=== PATIENT | male | born 1980 | race Caucasian/White ===

== ENCOUNTER → 2022-04-16 | Outpatient (REF) | payer OTHER ==
[2022-04-16 16:59] LABS: ALBUMIN 4.1 G/DL (3.2-5.2); ALKALINE PHOSPHATASE 81 U/L (46-116); ALT/SGPT 75 U/L (7.0-40); AST/SGOT 45 U/L (<34); BILIRUBIN,TOTAL 0.6 MG/DL (0.3-1.2); BLOOD UREA NITROGEN 13 MG/DL (9-23); CALCIUM LEVEL 9.3 MG/DL (8.5-10.1); CARBON DIOXIDE LEVEL 27 MMOL/L (20-31); CHLORIDE LEVEL 102 MMOL/L (98-107); CREATININE FOR GFR 1.01 MG/DL (0.70-1.30); GLOMERULAR FILTRATION RATE > 60.0 (>60); GLUCOSE, FASTING 106 MG/DL (60-100); POTASSIUM SERUM 4.7 MMOL/L (3.5-5.1); SODIUM LEVEL 139 MMOL/L (136-145); TOTAL PROTEIN 7.2 G/DL (5.7-8.2)
== END ==
LOC: M SFHCADAM 14:13
PROVIDERS: ATTEND Nurse Practitioner Family
DX: B35.0 Tinea barbae and tinea capitis (principal)

== ENCOUNTER 2023-02-12 23:32 | Inpatient (IN) | payer OTHER ==
[~2023-02-12] VITALS: Ht 175.3 cm; Wt 117.0 kg
[2023-02-12] MEDS ORDERED: METH-1165 PO (23:43)
[2023-02-12] MEDS ORDERED: PRIL20TA2 PO (23:43)
[2023-02-12] MEDS ORDERED: RAMI1CAP26 PO ×2 (23:43)
[2023-02-12] MEDS ORDERED: AMBI10TA PO (23:43)
[2023-02-12] MEDS ORDERED: ROSU40TA4 PO (23:43)
[2023-02-12] MEDS ORDERED: METO100T5 PO (23:43)
[2023-02-12] MEDS ORDERED: FLEC50HA PO (23:43)
[2023-02-12] MEDS ORDERED: ALLO100T PO (23:43)
[2023-02-12] MEDS ORDERED: CETI10TA4 PO (23:43)
[2023-02-12] MEDS ORDERED: BUSP10TA PO (23:43)
[2023-02-13] VITALS (16 sets, daily range): BP systolic 103–139; BP diastolic 61–96; TEMP 97.2–101.4; O2SAT 90–97
[2023-02-13] MEDS ORDERED: KETOROLAC 30 MG/ML 1ML VIAL IV ONE (00:35)
[2023-02-13 00:48] LABS: BASO # 0.1 10^3/uL (0.0-0.2); BASO % 0.2 % (0.0-1.0); HEMATOCRIT 47.3 % (42.0-52.0); HEMOGLOBIN 16.3 g/dl (13.5-17.5); LYMPH # 0.6 10^3/uL (1.5-5.0); LYMPH % 3.1 % (24.0-44.0); MEAN CORPUSCULAR HEMOGLOBIN 29.2 pg (27.0-33.0); MEAN CORPUSCULAR HGB CONC 34.5 g/dl (32.0-36.5); MEAN CORPUSCULAR VOLUME 84.8 fl (80.0-96.0); MONO # 1.1 10^3/uL (0.0-0.8); MONO % 5.6 % (2.0-8.0); NEUTROPHILS # 18.3 10^3/uL (1.5-8.5); NEUTROPHILS % 90.6 % (36.0-66.0); PLATELET COUNT, AUTOMATED 159 10^3/uL (150-450); RED BLOOD COUNT 5.58 10^6/uL (4.30-6.10); WHITE BLOOD COUNT 20.2 10^3/uL (4.0-10.0)
[2023-02-13 01:12] LABS: BLOOD UREA NITROGEN 13 MG/DL (9-23); CALCIUM LEVEL 9.3 MG/DL (8.5-10.1); CARBON DIOXIDE LEVEL 26 MMOL/L (20-31); CHLORIDE LEVEL 105 MMOL/L (98-107); GLOMERULAR FILTRATION RATE > 60.0 (>60); GLUCOSE, FASTING 157 MG/DL (60-100); SODIUM LEVEL 140 MMOL/L (136-145)
[2023-02-13] MEDS ORDERED: NS 1,000 ML IV SCH ×2 (01:15→08:00)
[2023-02-13] MEDS ORDERED: PIPERACILLIN/TAZOBACTAM SOD 4.5 GM in D5W MINI-BAG PLUS 50 ML IV ONE (01:15)
[2023-02-13] MEDS ORDERED: ISOVUE-370 76% 100ML VIAL As Ordered ONE (01:22)
[2023-02-13] MEDS ORDERED: ACETAMINOPHEN TAB 650MG DOSE (2X325MG) PO ONE (01:25)
[2023-02-13] MEDS ORDERED: ALTA1CAP3 PO (01:54)
[2023-02-13] MEDS ORDERED: FLEC50HA PO (01:54)
[2023-02-13] MEDS ORDERED: ALTA1CAP4 PO (01:54)
[2023-02-13] MEDS ORDERED: METH-1165 PO (01:54)
[2023-02-13] MEDS ORDERED: ASPI-161 PO (01:54)
[2023-02-13] MEDS ORDERED: MELA1TAB9 PO (01:54)
[2023-02-13] MEDS ORDERED: ALLO100T PO (01:54)
[2023-02-13] MEDS ORDERED: ERGO500029 PO (01:54)
[2023-02-13] MEDS ORDERED: OMEP40CA5 PO (01:54)
[2023-02-13] MEDS ORDERED: AMBI12.52 PO (01:54)
[2023-02-13] MEDS ORDERED: ROSU40TA4 PO (01:54)
[2023-02-13] MEDS ORDERED: KETO2SHA8 TOP (01:54)
[2023-02-13] MEDS ORDERED: CETI-25 PO (01:54)
[2023-02-13] MEDS ORDERED: BUSP10TA PO (01:54)
[2023-02-13] MEDS ORDERED: METO100T5 PO (01:54)
[2023-02-13] MEDS ORDERED: CLIN1GEL22 TOP (01:54)
[2023-02-13] MEDS ORDERED: HOME MED LIST COMPLETE! XX SCH (01:55)
[2023-02-13] MEDS ORDERED: GLUCAGON INJ 1MG VIAL As Ordered ONE (04:17)
[2023-02-13] MEDS ORDERED: ROCURONIUM BROMIDE 50MG/5ML VIAL As Ordered ONE ×2 (04:36→05:36)
[2023-02-13] MEDS ORDERED: LIDOCAINE 2% 100MG/5ML SDV (FOR ANES.) As Ordered ONE (04:37)
[2023-02-13] MEDS ORDERED: propofoL 200 MG/20 ML VIAL As Ordered ONE (04:39)
[2023-02-13] MEDS ORDERED: dexmedeTOMIDine (4MCG/ML)200MCG/50ML BTL (PRECEDEX) As Ordered ONE (05:22)
[2023-02-13] MEDS ORDERED: SUGAMMADEX SODIUM 500 MG/5 ML VIAL (BRIDION) As Ordered ONE (05:36)
[2023-02-13] MEDS ORDERED: fentaNYL 100 MCG/2 ML INJECTION As Ordered ONE (05:40)
[2023-02-13] MEDS ORDERED: MIDAZOLAM INJ 2MG/2ML VIAL As Ordered ONE (05:40)
[2023-02-13] MEDS ORDERED: ONDANSETRON 4MG 2ML VIAL As Ordered ONE (05:59)
[2023-02-13] MEDS ORDERED: ACETAMINOPHEN 1000MG 100ML IV BAG As Ordered ONE (06:00)
[2023-02-13] MEDS: ZOSYN 3.375GM VIAL As Ordered ONE ×2 (06:05→06:07)
[2023-02-13] MEDS ORDERED: KETOROLAC 60MG 2ML VIAL As Ordered ONE (07:19)
[2023-02-13] MEDS ORDERED: EPIDURAL/PCA KEYS XX PRN (08:00)
[2023-02-13] MEDS ORDERED: NALOXONE INJ 0.4MG/1ML VIAL IV PRN (08:00)
[2023-02-13] MEDS ORDERED: diphenhydrAMINE 50MG/ML VIAL IV PRN (08:00)
[2023-02-13] MEDS ORDERED: IPRATROPIUM 0.5MG/ALBUTEROL 2.5MG INH SOL UD 3ML (DUONEB) NEB PRN (08:00)
[2023-02-13] MEDS ORDERED: ONDANSETRON 4MG 2ML VIAL IV PRN (08:05)
[2023-02-13] MEDS ORDERED: HYDROMORPHONE HCL 0.5 MG/ 0.5 ML SYRINGE IV PRN (08:05)
[2023-02-13] MEDS ORDERED: oxyCODONE 5MG TAB PO PRN (08:05)
[2023-02-13] MEDS ORDERED: fentaNYL 100 MCG/2 ML INJECTION IV PRN (08:05)
[2023-02-13] MEDS ORDERED: LR 1,000 ML IV SCH (08:05)
[2023-02-13] MEDS: MORPHINE 1MG/ML IN 0.9% NACL 100ML IV BAG IV PRN (09:21)
[2023-02-13] MEDS: NS 1,000 ML IV SCH ×3 (09:24→21:41)
[2023-02-13] MEDS: IPRATROPIUM 0.5MG/ALBUTEROL 2.5MG INH SOL UD 3ML (DUONEB) NEB SCH ×3 (09:37→19:35)
[2023-02-13] MEDS: PANTOPRAZOLE 40MG VIAL IV SCH (10:49)
[2023-02-13] MEDS: PIPERACILLIN/TAZOBACTAM SOD 3.375 GM in D5W MINI-BAG PLUS 50 ML IV SCH ×3 (12:12→23:45)
[2023-02-13] MEDS: ALVIMOPAN 12 MG CAPSULE (ENTEREG) PO SCH ×2 (13:15→20:22)
[2023-02-13] MEDS: KETOROLAC 30 MG/ML 1ML VIAL IV SCH ×2 (14:07→19:54)
[2023-02-13] MEDS ORDERED: NS 1,000 ML IV ONE (19:45)
[2023-02-13] MEDS: FLECAINIDE 50MG TABLET PO SCH (20:22)
[2023-02-13] MEDS: ramipriL 5 MG CAP PO SCH (20:22)
[2023-02-13] MEDS: METOPROLOL TARTRATE 100MG TAB PO SCH (22:06)
[2023-02-13] MEDS: busPIRone 10 MG TAB PO PRN (22:09)
[2023-02-14] VITALS (27 sets, daily range): BP systolic 109–182; BP diastolic 69–98; TEMP 99.2–100.8; O2SAT 88–95
[2023-02-14] MEDS: IPRATROPIUM 0.5MG/ALBUTEROL 2.5MG INH SOL UD 3ML (DUONEB) NEB SCH ×4 (01:20→19:28)
[2023-02-14] MEDS: KETOROLAC 30 MG/ML 1ML VIAL IV SCH ×5 (02:08→20:33)
[2023-02-14] MEDS: MORPHINE 1MG/ML IN 0.9% NACL 100ML IV BAG IV PRN (03:01)
[2023-02-14] MEDS: NS 1,000 ML IV SCH ×3 (04:37→20:37)
[2023-02-14] MEDS: PIPERACILLIN/TAZOBACTAM SOD 3.375 GM in D5W MINI-BAG PLUS 50 ML IV SCH ×4 (05:35→23:58)
[2023-02-14 05:41] LABS: HEMATOCRIT 45.1 % (42.0-52.0); HEMOGLOBIN 14.6 g/dl (13.5-17.5); MEAN CORPUSCULAR HEMOGLOBIN 28.5 pg (27.0-33.0); MEAN CORPUSCULAR HGB CONC 32.4 g/dl (32.0-36.5); MEAN CORPUSCULAR VOLUME 87.9 fl (80.0-96.0); PLATELET COUNT, AUTOMATED 154 10^3/uL (150-450); RED BLOOD COUNT 5.13 10^6/uL (4.30-6.10); WHITE BLOOD COUNT 15.2 10^3/uL (4.0-10.0)
[2023-02-14 06:11] LABS: BLOOD UREA NITROGEN 23 MG/DL (9-23); CALCIUM LEVEL 8.2 MG/DL (8.5-10.1); CARBON DIOXIDE LEVEL 24 MMOL/L (20-31); CHLORIDE LEVEL 106 MMOL/L (98-107); GLOMERULAR FILTRATION RATE > 60.0 (>60); GLUCOSE, FASTING 116 MG/DL (60-100); POTASSIUM SERUM 4.3 MMOL/L (3.5-5.1); SODIUM LEVEL 140 MMOL/L (136-145)
[2023-02-14] MEDS: ramipriL 5 MG CAP PO SCH ×2 (08:36→20:32)
[2023-02-14] MEDS: FLECAINIDE 50MG TABLET PO SCH ×2 (08:36→20:32)
[2023-02-14] MEDS: PANTOPRAZOLE 40MG VIAL IV SCH (08:36)
[2023-02-14] MEDS: METOPROLOL TARTRATE 100MG TAB PO SCH ×2 (08:37→20:33)
[2023-02-14] MEDS: ALVIMOPAN 12 MG CAPSULE (ENTEREG) PO SCH ×2 (08:51→20:32)
[2023-02-15] VITALS (22 sets, daily range): BP systolic 138–170; BP diastolic 82–98; TEMP 98.9–101.1; O2SAT 91–96
[2023-02-15] MEDS: IPRATROPIUM 0.5MG/ALBUTEROL 2.5MG INH SOL UD 3ML (DUONEB) NEB SCH ×4 (01:17→19:26)
[2023-02-15] MEDS: KETOROLAC 30 MG/ML 1ML VIAL IV SCH ×4 (02:09→20:12)
[2023-02-15] MEDS: NS 1,000 ML IV SCH ×4 (02:14→23:39)
[2023-02-15 05:21] LABS: HEMATOCRIT 39.3 % (42.0-52.0); HEMOGLOBIN 13.3 g/dl (13.5-17.5); MEAN CORPUSCULAR HEMOGLOBIN 29.6 pg (27.0-33.0); MEAN CORPUSCULAR HGB CONC 33.8 g/dl (32.0-36.5); MEAN CORPUSCULAR VOLUME 87.3 fl (80.0-96.0); PLATELET COUNT, AUTOMATED 110 10^3/uL (150-450); WHITE BLOOD COUNT 11.8 10^3/uL (4.0-10.0)
[2023-02-15] MEDS: PIPERACILLIN/TAZOBACTAM SOD 3.375 GM in D5W MINI-BAG PLUS 50 ML IV SCH ×3 (05:34→18:17)
[2023-02-15 05:44] LABS: BLOOD UREA NITROGEN 19 MG/DL (9-23); CALCIUM LEVEL 8.3 MG/DL (8.5-10.1); CARBON DIOXIDE LEVEL 25 MMOL/L (20-31); CHLORIDE LEVEL 108 MMOL/L (98-107); GLOMERULAR FILTRATION RATE > 60.0 (>60); GLUCOSE, FASTING 114 MG/DL (60-100); POTASSIUM SERUM 3.9 MMOL/L (3.5-5.1); SODIUM LEVEL 140 MMOL/L (136-145)
[2023-02-15] MEDS: METOPROLOL TARTRATE 100MG TAB PO SCH ×2 (08:06→20:13)
[2023-02-15] MEDS: PANTOPRAZOLE 40MG VIAL IV SCH (08:07)
[2023-02-15] MEDS: FLECAINIDE 50MG TABLET PO SCH ×2 (08:07→20:13)
[2023-02-15] MEDS: busPIRone 10 MG TAB PO PRN (08:07)
[2023-02-15] MEDS: ALVIMOPAN 12 MG CAPSULE (ENTEREG) PO SCH ×2 (08:17→20:13)
[2023-02-15] MEDS: ramipriL 5 MG CAP PO SCH ×2 (08:17→20:13)
[2023-02-15] MEDS: ONDANSETRON 4MG 2ML VIAL IV PRN (08:19)
[2023-02-16] VITALS (7 sets, daily range): BP systolic 135–172; BP diastolic 63–100; TEMP 96.1–99.6; O2SAT 93–97
[2023-02-16] MEDS: PIPERACILLIN/TAZOBACTAM SOD 3.375 GM in D5W MINI-BAG PLUS 50 ML IV SCH ×3 (00:37→12:56)
[2023-02-16] MEDS: IPRATROPIUM 0.5MG/ALBUTEROL 2.5MG INH SOL UD 3ML (DUONEB) NEB SCH ×4 (01:19→19:07)
[2023-02-16] MEDS: KETOROLAC 30 MG/ML 1ML VIAL IV SCH ×4 (02:46→19:33)
[2023-02-16 05:46] LABS: HEMATOCRIT 36.8 % (42.0-52.0); HEMOGLOBIN 12.4 g/dl (13.5-17.5); MEAN CORPUSCULAR HEMOGLOBIN 28.5 pg (27.0-33.0); MEAN CORPUSCULAR HGB CONC 33.7 g/dl (32.0-36.5); MEAN CORPUSCULAR VOLUME 84.6 fl (80.0-96.0); PLATELET COUNT, AUTOMATED 150 10^3/uL (150-450); RED BLOOD COUNT 4.35 10^6/uL (4.30-6.10); WHITE BLOOD COUNT 8.6 10^3/uL (4.0-10.0)
[2023-02-16 06:10] LABS: BLOOD UREA NITROGEN 16 MG/DL (9-23); CALCIUM LEVEL 8.4 MG/DL (8.5-10.1); CARBON DIOXIDE LEVEL 24 MMOL/L (20-31); CHLORIDE LEVEL 109 MMOL/L (98-107); CREATININE FOR GFR 0.92 MG/DL (0.70-1.30); GLOMERULAR FILTRATION RATE > 60.0 (>60); GLUCOSE, FASTING 110 MG/DL (60-100); POTASSIUM SERUM 3.7 MMOL/L (3.5-5.1); SODIUM LEVEL 143 MMOL/L (136-145)
[2023-02-16] MEDS: NS 1,000 ML IV SCH ×2 (07:03→12:56)
[2023-02-16] MEDS: PANTOPRAZOLE 40MG VIAL IV SCH (08:24)
[2023-02-16] MEDS: METOPROLOL TARTRATE 100MG TAB PO SCH ×2 (08:24→20:19)
[2023-02-16] MEDS: ALVIMOPAN 12 MG CAPSULE (ENTEREG) PO SCH ×2 (08:25→20:19)
[2023-02-16] MEDS: ramipriL 5 MG CAP PO SCH ×2 (08:25→16:19)
[2023-02-16] MEDS: FLECAINIDE 50MG TABLET PO SCH ×2 (08:25→20:17)
[2023-02-16] MEDS ORDERED: FUROSEMIDE 20MG/2ML VIAL IV ONE (14:00)
[2023-02-16] MEDS: AUGMENTIN 875 MG TAB PO SCH (20:17)
[2023-02-17] VITALS (10 sets, daily range): BP systolic 134–172; BP diastolic 80–94; TEMP 97–102.5; O2SAT 93–96
[2023-02-17] MEDS: IPRATROPIUM 0.5MG/ALBUTEROL 2.5MG INH SOL UD 3ML (DUONEB) NEB SCH ×4 (01:17→19:29)
[2023-02-17] MEDS: ONDANSETRON 4MG 2ML VIAL IV PRN (01:42)
[2023-02-17] MEDS: KETOROLAC 30 MG/ML 1ML VIAL IV SCH ×4 (01:42→20:43)
[2023-02-17 06:15] LABS: HEMATOCRIT 36.6 % (42.0-52.0); HEMOGLOBIN 12.4 g/dl (13.5-17.5); MEAN CORPUSCULAR HEMOGLOBIN 28.8 pg (27.0-33.0); MEAN CORPUSCULAR HGB CONC 33.9 g/dl (32.0-36.5); MEAN CORPUSCULAR VOLUME 84.9 fl (80.0-96.0); PLATELET COUNT, AUTOMATED 172 10^3/uL (150-450); RED BLOOD COUNT 4.31 10^6/uL (4.30-6.10); WHITE BLOOD COUNT 9.1 10^3/uL (4.0-10.0)
[2023-02-17 06:30] LABS: BLOOD UREA NITROGEN 16 MG/DL (9-23); CALCIUM LEVEL 8.5 MG/DL (8.5-10.1); CARBON DIOXIDE LEVEL 24 MMOL/L (20-31); CHLORIDE LEVEL 105 MMOL/L (98-107); CREATININE FOR GFR 0.86 MG/DL (0.70-1.30); GLOMERULAR FILTRATION RATE > 60.0 (>60); GLUCOSE, FASTING 100 MG/DL (60-100); POTASSIUM SERUM 3.5 MMOL/L (3.5-5.1); SODIUM LEVEL 140 MMOL/L (136-145)
[2023-02-17] MEDS: PANTOPRAZOLE 40MG VIAL IV SCH (08:13)
[2023-02-17] MEDS: ALVIMOPAN 12 MG CAPSULE (ENTEREG) PO SCH ×2 (08:22→20:44)
[2023-02-17] MEDS: ramipriL 5 MG CAP PO SCH ×2 (08:24→20:44)
[2023-02-17] MEDS: AUGMENTIN 875 MG TAB PO SCH ×2 (08:24→20:45)
[2023-02-17] MEDS: FLECAINIDE 50MG TABLET PO SCH ×2 (08:25→20:45)
[2023-02-17] MEDS: METOPROLOL TARTRATE 100MG TAB PO SCH ×2 (08:28→20:45)
[2023-02-17] MEDS ORDERED: POTASSIUM CHLORIDE 10MEQ SR TABLET PO ONE ×2 (10:30→16:00)
[2023-02-17] MEDS: allopurinoL 100 MG TAB PO SCH (10:56)
[2023-02-17 11:06] LABS: BLOOD UREA NITROGEN 15 MG/DL (9-23); CALCIUM LEVEL 8.6 MG/DL (8.5-10.1); CARBON DIOXIDE LEVEL 24 MMOL/L (20-31); CHLORIDE LEVEL 108 MMOL/L (98-107); CREATININE FOR GFR 0.86 MG/DL (0.70-1.30); GLOMERULAR FILTRATION RATE > 60.0 (>60); GLUCOSE, FASTING 114 MG/DL (60-100); MAGNESIUM LEVEL 1.9 MG/DL (1.8-2.4); POTASSIUM SERUM 3.4 MMOL/L (3.5-5.1); SODIUM LEVEL 142 MMOL/L (136-145)
[2023-02-17 11:09] LABS: FREE T4 1.16 NG/DL (0.89-1.76); THYROID STIMULATING HORMONE 2.112 uIU/ML (0.55-4.78)
[2023-02-17] MEDS: HEPARIN SOD (PORCINE) 5000UNITS/ML 1ML VIAL/SYRINGE SQ SCH ×2 (14:05→21:07)
[2023-02-17] MEDS: busPIRone 10 MG TAB PO PRN (17:49)
[2023-02-17] MEDS: amLODIPine 5 MG TAB PO SCH (18:23)
[2023-02-17] MEDS ORDERED: ACETAMINOPHEN *IV* 1,000 MG in IV 1 EA IV ONE (20:30)
[2023-02-17] MEDS: CETIRIZINE (ZyrTEC) 10 MG TAB PO SCH (20:45)
[2023-02-17 21:10] LABS: HEMATOCRIT 35.5 % (42.0-52.0); HEMOGLOBIN 12.2 g/dl (13.5-17.5); MEAN CORPUSCULAR HEMOGLOBIN 28.7 pg (27.0-33.0); MEAN CORPUSCULAR HGB CONC 34.4 g/dl (32.0-36.5); MEAN CORPUSCULAR VOLUME 83.5 fl (80.0-96.0); PLATELET COUNT, AUTOMATED 162 10^3/uL (150-450); RED BLOOD COUNT 4.25 10^6/uL (4.30-6.10); WHITE BLOOD COUNT 11.1 10^3/uL (4.0-10.0)
[2023-02-17 21:34] LABS: BLOOD UREA NITROGEN 15 MG/DL (9-23); CALCIUM LEVEL 8.8 MG/DL (8.5-10.1); CARBON DIOXIDE LEVEL 22 MMOL/L (20-31); CHLORIDE LEVEL 108 MMOL/L (98-107); CREATININE FOR GFR 0.86 MG/DL (0.70-1.30); GLOMERULAR FILTRATION RATE > 60.0 (>60); GLUCOSE, FASTING 103 MG/DL (60-100); POTASSIUM SERUM 3.6 MMOL/L (3.5-5.1); SODIUM LEVEL 140 MMOL/L (136-145)
[2023-02-17] MEDS: RAMELTEON 8 MG TAB (ROZEREM) PO PRN (22:37)
[2023-02-18] VITALS (8 sets, daily range): BP systolic 123–152; BP diastolic 78–85; TEMP 97–102.2; O2SAT 92–97
[2023-02-18] MEDS: IPRATROPIUM 0.5MG/ALBUTEROL 2.5MG INH SOL UD 3ML (DUONEB) NEB SCH ×4 (02:00→19:12)
[2023-02-18] MEDS: KETOROLAC 30 MG/ML 1ML VIAL IV SCH ×2 (02:32→08:15)
[2023-02-18] MEDS: ONDANSETRON 4MG 2ML VIAL IV PRN ×3 (04:25→20:39)
[2023-02-18] MEDS: NORCO, ANEXSIA 5/325MG TABLET (HYDROcodone/ACETAMINOPHEN) PO PRN ×3 (04:25→20:38)
[2023-02-18] MEDS: HEPARIN SOD (PORCINE) 5000UNITS/ML 1ML VIAL/SYRINGE SQ SCH ×3 (05:50→20:39)
[2023-02-18 06:17] LABS: HEMATOCRIT 37.7 % (42.0-52.0); HEMOGLOBIN 12.8 g/dl (13.5-17.5); MEAN CORPUSCULAR HEMOGLOBIN 28.9 pg (27.0-33.0); MEAN CORPUSCULAR VOLUME 85.1 fl (80.0-96.0); PLATELET COUNT, AUTOMATED 179 10^3/uL (150-450); RED BLOOD COUNT 4.43 10^6/uL (4.30-6.10); WHITE BLOOD COUNT 10.3 10^3/uL (4.0-10.0)
[2023-02-18 06:27] LABS: BLOOD UREA NITROGEN 17 MG/DL (9-23); CALCIUM LEVEL 8.3 MG/DL (8.5-10.1); CARBON DIOXIDE LEVEL 24 MMOL/L (20-31); CHLORIDE LEVEL 108 MMOL/L (98-107); GLOMERULAR FILTRATION RATE > 60.0 (>60); GLUCOSE, FASTING 129 MG/DL (60-100); POTASSIUM SERUM 3.8 MMOL/L (3.5-5.1); SODIUM LEVEL 140 MMOL/L (136-145)
[2023-02-18] MEDS ORDERED: POTASSIUM CHLORIDE 10MEQ SR TABLET PO ONE (06:30)
[2023-02-18] MEDS: PANTOPRAZOLE 40MG VIAL IV SCH (08:16)
[2023-02-18] MEDS: AUGMENTIN 875 MG TAB PO SCH ×2 (08:17→20:40)
[2023-02-18] MEDS: ALVIMOPAN 12 MG CAPSULE (ENTEREG) PO SCH ×2 (08:17→20:39)
[2023-02-18] MEDS: METOPROLOL TARTRATE 100MG TAB PO SCH ×2 (08:18→20:40)
[2023-02-18] MEDS: allopurinoL 100 MG TAB PO SCH (08:18)
[2023-02-18] MEDS: FLECAINIDE 50MG TABLET PO SCH ×2 (08:18→20:39)
[2023-02-18] MEDS: amLODIPine 5 MG TAB PO SCH (08:19)
[2023-02-18] MEDS: ramipriL 5 MG CAP PO SCH ×2 (08:19→20:40)
[2023-02-18] MEDS ORDERED: ENOXAPARIN 40MG/0.4ML SYRINGE (J1650 PER 10MG) SC SCH (09:00)
[2023-02-18] MEDS: GASTROGRAFIN SOLUTION 30ML PO SCH (09:01)
[2023-02-18] MEDS ORDERED: ISOVUE-370 76% 100ML VIAL As Ordered ONE (10:54)
[2023-02-18] MEDS ORDERED: LIDOCAINE 1% MDV 20ML VIAL As Ordered ONE (16:04)
[2023-02-18] MEDS ORDERED: fentaNYL 100 MCG/2 ML INJECTION As Ordered ONE (16:51)
[2023-02-18] MEDS ORDERED: MIDAZOLAM INJ 2MG/2ML VIAL As Ordered ONE (16:51)
[2023-02-18] MEDS: CETIRIZINE (ZyrTEC) 10 MG TAB PO SCH (20:40)
[2023-02-19] VITALS (9 sets, daily range): BP systolic 127–162; BP diastolic 78–108; TEMP 97.3–100.6; O2SAT 88–94
[2023-02-19] MEDS: MORPHINE 2 MG/ML 1ML VIAL IV PRN (00:11)
[2023-02-19] MEDS ORDERED: MORPHINE 30 MG TAB **MSIR PO ONE (02:25)
[2023-02-19] MEDS: RAMELTEON 8 MG TAB (ROZEREM) PO PRN ×2 (02:33→20:38)
[2023-02-19] MEDS: PERCOCET 5MG/325MG TAB PO PRN (02:34)
[2023-02-19] MEDS ORDERED: PILL CUTTER 1 EACH XX PRN (02:35)
[2023-02-19] MEDS: ONDANSETRON 4MG 2ML VIAL IV PRN (02:51)
[2023-02-19] MEDS: IPRATROPIUM 0.5MG/ALBUTEROL 2.5MG INH SOL UD 3ML (DUONEB) NEB SCH ×4 (02:55→20:00)
[2023-02-19 05:52] LABS: HEMATOCRIT 35.5 % (42.0-52.0); HEMOGLOBIN 12.1 g/dl (13.5-17.5); MEAN CORPUSCULAR HEMOGLOBIN 29.2 pg (27.0-33.0); MEAN CORPUSCULAR HGB CONC 34.1 g/dl (32.0-36.5); MEAN CORPUSCULAR VOLUME 85.7 fl (80.0-96.0); PLATELET COUNT, AUTOMATED 176 10^3/uL (150-450); RED BLOOD COUNT 4.14 10^6/uL (4.30-6.10)
[2023-02-19] MEDS: HEPARIN SOD (PORCINE) 5000UNITS/ML 1ML VIAL/SYRINGE SQ SCH ×3 (05:52→20:53)
[2023-02-19 06:20] LABS: BLOOD UREA NITROGEN 11 MG/DL (9-23); CALCIUM LEVEL 8.4 MG/DL (8.5-10.1); CARBON DIOXIDE LEVEL 24 MMOL/L (20-31); CHLORIDE LEVEL 103 MMOL/L (98-107); CREATININE FOR GFR 0.78 MG/DL (0.70-1.30); GLOMERULAR FILTRATION RATE > 60.0 (>60); GLUCOSE, FASTING 107 MG/DL (60-100); POTASSIUM SERUM 3.9 MMOL/L (3.5-5.1); SODIUM LEVEL 137 MMOL/L (136-145)
[2023-02-19] MEDS: allopurinoL 100 MG TAB PO SCH (08:46)
[2023-02-19] MEDS: AUGMENTIN 875 MG TAB PO SCH (08:46)
[2023-02-19] MEDS: FLECAINIDE 50MG TABLET PO SCH ×2 (08:47→20:37)
[2023-02-19] MEDS: ALVIMOPAN 12 MG CAPSULE (ENTEREG) PO SCH (08:47)
[2023-02-19] MEDS: PANTOPRAZOLE 40MG VIAL IV SCH (08:48)
[2023-02-19] MEDS: ramipriL 5 MG CAP PO SCH ×2 (08:49→20:38)
[2023-02-19] MEDS: amLODIPine 5 MG TAB PO SCH (08:49)
[2023-02-19] MEDS: METOPROLOL TARTRATE 100MG TAB PO SCH ×2 (08:50→19:51)
[2023-02-19] MEDS ORDERED: LIDOCAINE 1% MDV 20ML VIAL As Ordered ONE (10:54)
[2023-02-19] MEDS: KCL 40MEQ in NS 1000ML 1,000 ML IV SCH ×3 (11:05→23:47)
[2023-02-19] MEDS: KETOROLAC 30 MG/ML 1ML VIAL IV SCH ×3 (11:05→23:47)
[2023-02-19] MEDS: metroNIDAZOLE 500 MG in IV 1 EA IV SCH ×2 (12:27→20:38)
[2023-02-19] MEDS: CIPROFLOXACIN 400 MG in IV 1 EA IV SCH ×2 (12:27→23:47)
[2023-02-19] MEDS: SODIUM CHLORIDE 0.9% INJ 10 ML SYR IV SCH (17:38)
[2023-02-19] MEDS ORDERED: DIGOXIN INJ 0.5 MG/2 ML AMP IV STA (18:52)
[2023-02-19] MEDS: CETIRIZINE (ZyrTEC) 10 MG TAB PO SCH (20:37)
[2023-02-19] MEDS: busPIRone 10 MG TAB PO PRN (20:38)
[2023-02-20] MEDS: IPRATROPIUM 0.5MG/ALBUTEROL 2.5MG INH SOL UD 3ML (DUONEB) NEB SCH ×4 (02:59→19:33)
[2023-02-20 03:31] VITALS: BP 145/83; TEMP 98.8; O2SAT 95
[2023-02-20] MEDS: metroNIDAZOLE 500 MG in IV 1 EA IV SCH ×3 (05:07→20:32)
[2023-02-20 05:39] LABS: HEMATOCRIT 36.6 % (42.0-52.0); HEMOGLOBIN 12.2 g/dl (13.5-17.5); MEAN CORPUSCULAR HEMOGLOBIN 28.5 pg (27.0-33.0); MEAN CORPUSCULAR HGB CONC 33.3 g/dl (32.0-36.5); MEAN CORPUSCULAR VOLUME 85.5 fl (80.0-96.0); PLATELET COUNT, AUTOMATED 182 10^3/uL (150-450); RED BLOOD COUNT 4.28 10^6/uL (4.30-6.10); WHITE BLOOD COUNT 8.6 10^3/uL (4.0-10.0)
[2023-02-20 06:04] LABS: BLOOD UREA NITROGEN 10 MG/DL (9-23); CALCIUM LEVEL 8.3 MG/DL (8.5-10.1); CARBON DIOXIDE LEVEL 26 MMOL/L (20-31); CHLORIDE LEVEL 107 MMOL/L (98-107); CREATININE FOR GFR 0.89 MG/DL (0.70-1.30); GLOMERULAR FILTRATION RATE > 60.0 (>60); GLUCOSE, FASTING 107 MG/DL (60-100); POTASSIUM SERUM 4.4 MMOL/L (3.5-5.1); SODIUM LEVEL 140 MMOL/L (136-145)
[2023-02-20] MEDS: KETOROLAC 30 MG/ML 1ML VIAL IV SCH ×3 (06:26→18:05)
[2023-02-20] MEDS: HEPARIN SOD (PORCINE) 5000UNITS/ML 1ML VIAL/SYRINGE SQ SCH ×3 (06:26→20:31)
[2023-02-20] MEDS: SODIUM CHLORIDE 0.9% INJ 10 ML SYR IV SCH ×2 (06:26→18:00)
[2023-02-20 06:39] VITALS: TEMP 100.2
[2023-02-20] MEDS ORDERED: DIGOXIN INJ 0.5 MG/2 ML AMP IV STA (06:45)
[2023-02-20 08:00] VITALS: BP 144/88; TEMP 98.5; O2SAT 93
[2023-02-20] MEDS: ramipriL 5 MG CAP PO SCH ×2 (08:47→20:31)
[2023-02-20] MEDS: PANTOPRAZOLE 40MG VIAL IV SCH (08:47)
[2023-02-20] MEDS: FLECAINIDE 50MG TABLET PO SCH ×2 (08:48→20:31)
[2023-02-20] MEDS: allopurinoL 100 MG TAB PO SCH (08:48)
[2023-02-20] MEDS: amLODIPine 5 MG TAB PO SCH (08:48)
[2023-02-20] MEDS: METOPROLOL TARTRATE 100MG TAB PO SCH ×2 (08:49→20:31)
[2023-02-20] MEDS: KCL 40MEQ in NS 1000ML 1,000 ML IV SCH (08:50)
[2023-02-20 12:11] VITALS: BP 146/86; TEMP 97.4; O2SAT 90
[2023-02-20] MEDS: OCTREOTIDE ACETATE 100MCG/ML VIAL **IV ADMINISTRATION ONLY IV SCH ×2 (12:55→19:04)
[2023-02-20] MEDS: CIPROFLOXACIN 400 MG in IV 1 EA IV SCH (12:55)
[2023-02-20 15:44] VITALS: BP 150/90; TEMP 97.7; O2SAT 90
[2023-02-20] MEDS ORDERED: MULTIVITAMIN -ADULT INJECTION 10 ML, ZINC/COPPER/MANGANESE/SELENIUM 1 ML in AMINO AC/EL... IV SCH (18:00)
[2023-02-20] MEDS ORDERED: FAT EMULSION IV 250 ML IV ONE (18:00)
[2023-02-20 20:00] VITALS: BP 170/90; TEMP 97.6; O2SAT 94
[2023-02-20] MEDS: CETIRIZINE (ZyrTEC) 10 MG TAB PO SCH (20:32)
[2023-02-21] VITALS: BP 154/89; TEMP 97.9; O2SAT 92
[2023-02-21] MEDS: CIPROFLOXACIN 400 MG in IV 1 EA IV SCH ×3 (00:31→23:50)
[2023-02-21] MEDS: KETOROLAC 30 MG/ML 1ML VIAL IV SCH ×5 (00:32→23:50)
[2023-02-21] MEDS: IPRATROPIUM 0.5MG/ALBUTEROL 2.5MG INH SOL UD 3ML (DUONEB) NEB SCH ×4 (01:45→19:30)
[2023-02-21] MEDS: OCTREOTIDE ACETATE 100MCG/ML VIAL **IV ADMINISTRATION ONLY IV SCH ×3 (03:03→18:29)
[2023-02-21 04:00] VITALS: BP 138/92; TEMP 97.6; O2SAT 92
[2023-02-21] MEDS: HEPARIN SOD (PORCINE) 5000UNITS/ML 1ML VIAL/SYRINGE SQ SCH ×3 (05:03→21:29)
[2023-02-21] MEDS: metroNIDAZOLE 500 MG in IV 1 EA IV SCH ×3 (05:03→21:30)
[2023-02-21] MEDS: SODIUM CHLORIDE 0.9% INJ 10 ML SYR IV SCH ×2 (06:00→17:58)
[2023-02-21] MEDS: KCL 40MEQ in NS 1000ML 1,000 ML IV SCH ×2 (07:00→15:13)
[2023-02-21 08:07] VITALS: BP 162/90; TEMP 97.4; O2SAT 93
[2023-02-21] MEDS: DIGOXIN INJ 0.5 MG/2 ML AMP IV SCH (09:00)
[2023-02-21] MEDS: ramipriL 5 MG CAP PO SCH ×2 (10:00→21:27)
[2023-02-21] MEDS: allopurinoL 100 MG TAB PO SCH (10:00)
[2023-02-21] MEDS: PANTOPRAZOLE 40MG VIAL IV SCH (10:00)
[2023-02-21] MEDS: METOPROLOL TARTRATE 100MG TAB PO SCH ×2 (10:00→21:28)
[2023-02-21] MEDS: FLECAINIDE 50MG TABLET PO SCH ×2 (10:01→22:23)
[2023-02-21] MEDS: amLODIPine 5 MG TAB PO SCH (10:01)
[2023-02-21 14:30] VITALS: BP 153/95; TEMP 98.1; O2SAT 93
[2023-02-21 18:00] VITALS: BP 153/94; TEMP 98.8; O2SAT 93
[2023-02-21] MEDS ORDERED: AMINO AC/ELECTROLYTE/DEX/CALC 2,000 ML IV SCH (18:00)
[2023-02-21] MEDS ORDERED: FAT EMULSION IV 250 ML IV ONE (18:00)
[2023-02-21] MEDS: CETIRIZINE (ZyrTEC) 10 MG TAB PO SCH (21:28)
[2023-02-21 21:35] VITALS: BP 166/96; TEMP 98.1; O2SAT 94
[2023-02-22] VITALS (9 sets, daily range): BP systolic 106–160; BP diastolic 64–89; TEMP 96.3–99.6; O2SAT 93–95
[2023-02-22] MEDS: IPRATROPIUM 0.5MG/ALBUTEROL 2.5MG INH SOL UD 3ML (DUONEB) NEB SCH ×4 (01:49→20:00)
[2023-02-22] MEDS: OCTREOTIDE ACETATE 100MCG/ML VIAL **IV ADMINISTRATION ONLY IV SCH (03:00)
[2023-02-22] MEDS: metroNIDAZOLE 500 MG in IV 1 EA IV SCH ×3 (04:44→19:45)
[2023-02-22 05:51] LABS: HEMATOCRIT 39.9 % (42.0-52.0); HEMOGLOBIN 13.5 g/dl (13.5-17.5); MEAN CORPUSCULAR HEMOGLOBIN 28.8 pg (27.0-33.0); MEAN CORPUSCULAR HGB CONC 33.8 g/dl (32.0-36.5); MEAN CORPUSCULAR VOLUME 85.1 fl (80.0-96.0); PLATELET COUNT, AUTOMATED 247 10^3/uL (150-450); RED BLOOD COUNT 4.69 10^6/uL (4.30-6.10); WHITE BLOOD COUNT 9.2 10^3/uL (4.0-10.0)
[2023-02-22 06:10] LABS: BLOOD UREA NITROGEN 12 MG/DL (9-23); CALCIUM LEVEL 8.5 MG/DL (8.5-10.1); CARBON DIOXIDE LEVEL 20 MMOL/L (20-31); CHLORIDE LEVEL 107 MMOL/L (98-107); CREATININE FOR GFR 0.67 MG/DL (0.70-1.30); GLOMERULAR FILTRATION RATE > 60.0 (>60); GLUCOSE, FASTING 126 MG/DL (60-100); POTASSIUM SERUM 4.7 MMOL/L (3.5-5.1); SODIUM LEVEL 139 MMOL/L (136-145)
[2023-02-22] MEDS: HEPARIN SOD (PORCINE) 5000UNITS/ML 1ML VIAL/SYRINGE SQ SCH ×3 (06:33→22:00)
[2023-02-22] MEDS: SODIUM CHLORIDE 0.9% INJ 10 ML SYR IV SCH ×2 (06:34→18:00)
[2023-02-22] MEDS: KETOROLAC 30 MG/ML 1ML VIAL IV SCH ×4 (06:35→23:29)
[2023-02-22] MEDS: MORPHINE 2 MG/ML 1ML VIAL IV PRN (07:35)
[2023-02-22] MEDS: ONDANSETRON 4MG 2ML VIAL IV PRN (08:07)
[2023-02-22 08:18] LABS: DIGOXIN LEVEL 0.4 NG/ML (0.8-2.0)
[2023-02-22] MEDS ORDERED: MORPHINE 4 MG/ML 1ML VIAL IV PRN (08:45)
[2023-02-22] MEDS ORDERED: LIDOCAINE 2% 100MG/5ML SDV (FOR ANES.) As Ordered ONE (09:05)
[2023-02-22] MEDS ORDERED: KETOROLAC 60MG 2ML VIAL As Ordered ONE ×2 (09:05→09:13)
[2023-02-22] MEDS ORDERED: SUGAMMADEX SODIUM 500 MG/5 ML VIAL (BRIDION) As Ordered ONE (09:05)
[2023-02-22] MEDS ORDERED: ROCURONIUM BROMIDE 50MG/5ML VIAL As Ordered ONE ×3 (09:05→11:09)
[2023-02-22] MEDS ORDERED: propofoL 200 MG/20 ML VIAL As Ordered ONE (09:05)
[2023-02-22] MEDS ORDERED: ACETAMINOPHEN 1000MG 100ML IV BAG As Ordered ONE (09:06)
[2023-02-22] MEDS ORDERED: fentaNYL 250 MCG/5 ML INJECTION As Ordered ONE (09:07)
[2023-02-22] MEDS ORDERED: MIDAZOLAM INJ 2MG/2ML VIAL As Ordered ONE (09:08)
[2023-02-22] MEDS ORDERED: CIPROFLOXACIN/D5W 400 MG/200 ML BAG As Ordered ONE (10:57)
[2023-02-22] MEDS ORDERED: CALCIUM CHLORIDE 10% 1 GM/10 ML SYR As Ordered ONE (12:40)
[2023-02-22] MEDS ORDERED: ONDANSETRON 4MG 2ML VIAL As Ordered ONE (12:48)
[2023-02-22] MEDS ORDERED: diphenhydrAMINE 50MG/ML VIAL IV PRN (13:05)
[2023-02-22] MEDS ORDERED: NALOXONE INJ 0.4MG/1ML VIAL IV PRN (13:05)
[2023-02-22] MEDS ORDERED: LR 1,000 ML IV SCH (13:05)
[2023-02-22] MEDS ORDERED: NS 1,000 ML IV SCH (13:05)
[2023-02-22] MEDS ORDERED: EPIDURAL/PCA KEYS XX PRN (13:05)
[2023-02-22] MEDS ORDERED: fentaNYL 100 MCG/2 ML INJECTION IV PRN (13:05)
[2023-02-22] MEDS ORDERED: ONDANSETRON 4MG 2ML VIAL IV PRN ×2 (13:05)
[2023-02-22] MEDS ORDERED: oxyCODONE 5MG TAB PO PRN (13:05)
[2023-02-22] MEDS: CIPROFLOXACIN 400 MG in IV 1 EA IV SCH ×2 (13:10→23:29)
[2023-02-22] MEDS: HYDROMORPHONE HCL 0.5 MG/ 0.5 ML SYRINGE IV PRN ×2 (13:27→13:35)
[2023-02-22] MEDS: MORPHINE 1MG/ML IN 0.9% NACL 100ML IV BAG IV PRN (13:45)
[2023-02-22] MEDS ORDERED: CHLORASEPTIC SPRAY MT PRN (14:55)
[2023-02-22] MEDS: ramipriL 5 MG CAP PO SCH ×2 (14:57→19:43)
[2023-02-22] MEDS: METOPROLOL TARTRATE 100MG TAB PO SCH ×2 (14:58→19:44)
[2023-02-22] MEDS: amLODIPine 5 MG TAB PO SCH (14:58)
[2023-02-22] MEDS: allopurinoL 100 MG TAB PO SCH (14:58)
[2023-02-22] MEDS: FLECAINIDE 50MG TABLET PO SCH ×2 (14:58→19:44)
[2023-02-22] MEDS: PANTOPRAZOLE 40MG VIAL IV SCH (15:15)
[2023-02-22] MEDS: DIGOXIN INJ 0.5 MG/2 ML AMP IV SCH (15:15)
[2023-02-22] MEDS: KCL 40MEQ in NS 1000ML 1,000 ML IV SCH ×2 (15:16→23:07)
[2023-02-22] MEDS ORDERED: FAT EMULSION IV 250 ML IV ONE (18:00)
[2023-02-22] MEDS ORDERED: AMINO AC/ELECTROLYTE/DEX/CALC 2,000 ML IV SCH (18:00)
[2023-02-22] MEDS: CETIRIZINE (ZyrTEC) 10 MG TAB PO SCH (19:45)
[2023-02-23] VITALS (8 sets, daily range): BP systolic 108–127; BP diastolic 58–93; TEMP 96.6–98.3; O2SAT 92–95
[2023-02-23] MEDS: IPRATROPIUM 0.5MG/ALBUTEROL 2.5MG INH SOL UD 3ML (DUONEB) NEB SCH ×4 (01:55→20:20)
[2023-02-23] MEDS: HEPARIN SOD (PORCINE) 5000UNITS/ML 1ML VIAL/SYRINGE SQ SCH ×2 (05:24→14:12)
[2023-02-23] MEDS: SODIUM CHLORIDE 0.9% INJ 10 ML SYR IV SCH ×2 (05:24→14:12)
[2023-02-23] MEDS: metroNIDAZOLE 500 MG in IV 1 EA IV SCH ×3 (05:41→21:01)
[2023-02-23 05:42] LABS: HEMATOCRIT 46.5 % (42.0-52.0); HEMOGLOBIN 14.9 g/dl (13.5-17.5); MEAN CORPUSCULAR HEMOGLOBIN 28.3 pg (27.0-33.0); MEAN CORPUSCULAR VOLUME 88.2 fl (80.0-96.0); PLATELET COUNT, AUTOMATED 298 10^3/uL (150-450); RED BLOOD COUNT 5.27 10^6/uL (4.30-6.10); WHITE BLOOD COUNT 22.9 10^3/uL (4.0-10.0)
[2023-02-23] MEDS: KETOROLAC 30 MG/ML 1ML VIAL IV SCH (05:55)
[2023-02-23 06:17] LABS: CALCIUM LEVEL 8.6 MG/DL (8.5-10.1); CREATININE FOR GFR 1.7 MG/DL (0.70-1.30); GLOMERULAR FILTRATION RATE 47.3 (>60); POTASSIUM SERUM 6.2 MMOL/L (3.5-5.1)
[2023-02-23] MEDS ORDERED: NS 1,000 ML IV SCH (06:30)
[2023-02-23] MEDS: METOPROLOL TARTRATE 100MG TAB PO SCH ×3 (08:05→21:06)
[2023-02-23] MEDS: FLECAINIDE 50MG TABLET PO SCH ×3 (08:06→21:04)
[2023-02-23] MEDS: allopurinoL 100 MG TAB PO SCH (08:06)
[2023-02-23] MEDS: amLODIPine 5 MG TAB PO SCH (08:06)
[2023-02-23] MEDS: PANTOPRAZOLE 40MG VIAL IV SCH (09:10)
[2023-02-23] MEDS: DIGOXIN INJ 0.5 MG/2 ML AMP IV SCH (09:10)
[2023-02-23] MEDS ORDERED: NS 1,000 ML IV ONE ×2 (10:00→13:35)
[2023-02-23] MEDS: MORPHINE 1MG/ML IN 0.9% NACL 100ML IV BAG IV PRN (10:12)
[2023-02-23 10:53] LABS: CALCIUM LEVEL 8.2 MG/DL (8.5-10.1); CREATININE FOR GFR 1.76 MG/DL (0.70-1.30); GLOMERULAR FILTRATION RATE 45.4 (>60); MAGNESIUM LEVEL 2.1 MG/DL (1.8-2.4); POTASSIUM SERUM 6.2 MMOL/L (3.5-5.1)
[2023-02-23] MEDS: PIPERACILLIN/TAZOBACTAM SOD 3.375 GM in D5W MINI-BAG PLUS 50 ML IV SCH ×3 (11:48→23:32)
[2023-02-23] MEDS ORDERED: FUROSEMIDE 100MG/10ML VIAL IV ONE (13:35)
[2023-02-23] MEDS ORDERED: CALCIUM GLUCONATE 1,000 MG in D5W MINI-BAG PLUS 100 ML IV ONE (13:35)
[2023-02-23] MEDS ORDERED: CHLOROTHIAZIDE 500MG VIAL IV ONE (13:35)
[2023-02-23 15:19] LABS: CALCIUM LEVEL 8.9 MG/DL (8.5-10.1); CREATININE FOR GFR 1.52 MG/DL (0.70-1.30); GLOMERULAR FILTRATION RATE 53.8 (>60); POTASSIUM SERUM 5.5 MMOL/L (3.5-5.1)
[2023-02-23] MEDS: SODIUM BICARBONATE 75 MEQ in NS 0.45% 1,000 ML IV SCH ×2 (15:51→23:32)
[2023-02-23] MEDS ORDERED: FAT EMULSION IV 250 ML IV ONE (18:00)
[2023-02-23] MEDS ORDERED: MULTIVITAMIN -ADULT INJECTION 10 ML, ZINC/COPPER/MANGANESE/SELENIUM 1 ML in AMINO AC/EL... IV SCH (18:00)
[2023-02-23 20:41] LABS: CALCIUM LEVEL 8.4 MG/DL (8.5-10.1); CREATININE FOR GFR 1.55 MG/DL (0.70-1.30); GLOMERULAR FILTRATION RATE 52.6 (>60); POTASSIUM SERUM 5.4 MMOL/L (3.5-5.1)
[2023-02-23] MEDS: RAMELTEON 8 MG TAB (ROZEREM) PO PRN (21:03)
[2023-02-23] MEDS: CETIRIZINE (ZyrTEC) 10 MG TAB PO SCH (21:03)
[2023-02-23] MEDS: busPIRone 10 MG TAB PO PRN (21:06)
[2023-02-24] MEDS: IPRATROPIUM 0.5MG/ALBUTEROL 2.5MG INH SOL UD 3ML (DUONEB) NEB SCH ×4 (01:16→21:21)
[2023-02-24 03:39] VITALS: BP 128/66; TEMP 97.8; O2SAT 95
[2023-02-24 05:14] LABS: HEMATOCRIT 41.7 % (42.0-52.0); HEMOGLOBIN 13.4 g/dl (13.5-17.5); MEAN CORPUSCULAR HEMOGLOBIN 28.6 pg (27.0-33.0); MEAN CORPUSCULAR HGB CONC 32.1 g/dl (32.0-36.5); MEAN CORPUSCULAR VOLUME 89.1 fl (80.0-96.0); PLATELET COUNT, AUTOMATED 254 10^3/uL (150-450); RED BLOOD COUNT 4.68 10^6/uL (4.30-6.10); WHITE BLOOD COUNT 17.3 10^3/uL (4.0-10.0)
[2023-02-24] MEDS: metroNIDAZOLE 500 MG in IV 1 EA IV SCH (05:23)
[2023-02-24] MEDS: PIPERACILLIN/TAZOBACTAM SOD 3.375 GM in D5W MINI-BAG PLUS 50 ML IV SCH ×3 (05:31→18:30)
[2023-02-24] MEDS: SODIUM CHLORIDE 0.9% INJ 10 ML SYR IV SCH ×2 (05:33→18:00)
[2023-02-24 05:37] LABS: CALCIUM LEVEL 8.3 MG/DL (8.5-10.1); CREATININE FOR GFR 1.42 MG/DL (0.70-1.30); GLOMERULAR FILTRATION RATE 58.2 (>60); POTASSIUM SERUM 5.2 MMOL/L (3.5-5.1)
[2023-02-24] MEDS: SODIUM BICARBONATE 75 MEQ in NS 0.45% 1,000 ML IV SCH ×2 (07:07→18:30)
[2023-02-24 08:18] VITALS: BP 113/75; TEMP 97.4; O2SAT 97
[2023-02-24] MEDS: amLODIPine 5 MG TAB PO SCH (09:00)
[2023-02-24] MEDS: DIGOXIN INJ 0.5 MG/2 ML AMP IV SCH (10:08)
[2023-02-24] MEDS: PANTOPRAZOLE 40MG VIAL IV SCH (10:08)
[2023-02-24] MEDS: FLECAINIDE 50MG TABLET PO SCH ×2 (10:09→20:22)
[2023-02-24] MEDS: allopurinoL 100 MG TAB PO SCH (10:09)
[2023-02-24] MEDS: METOPROLOL TARTRATE 100MG TAB PO SCH ×2 (10:09→20:22)
[2023-02-24] MEDS: MORPHINE 1MG/ML IN 0.9% NACL 100ML IV BAG IV PRN (11:16)
[2023-02-24 12:00] VITALS: BP 126/74; TEMP 99.4; O2SAT 92
[2023-02-24 14:24] LABS: BLOOD UREA NITROGEN 22 MG/DL (9-23); CALCIUM LEVEL 8.2 MG/DL (8.5-10.1); CARBON DIOXIDE LEVEL 28 MMOL/L (20-31); CHLORIDE LEVEL 101 MMOL/L (98-107); CREATININE FOR GFR 0.97 MG/DL (0.70-1.30); GLOMERULAR FILTRATION RATE > 60.0 (>60); GLUCOSE, FASTING 134 MG/DL (60-100); POTASSIUM SERUM 4.3 MMOL/L (3.5-5.1); SODIUM LEVEL 134 MMOL/L (136-145)
[2023-02-24 15:51] VITALS: BP 126/79; TEMP 96.4; O2SAT 93
[2023-02-24] MEDS ORDERED: SODIUM CHLORIDE IV SCH ×11 (18:00)
[2023-02-24] MEDS ORDERED: [UNRECOGNIZED DRUG - OTHER] IV SCH ×5 (18:00)
[2023-02-24] MEDS ORDERED: SODIUM ACETATE IV SCH ×6 (18:00)
[2023-02-24] MEDS ORDERED: [UNRECOGNIZED DRUG - OTHER] IV SCH ×6 (18:00)
[2023-02-24] MEDS ORDERED: FAT EMULSION IV 250 ML IV ONE (18:00)
[2023-02-24] MEDS ORDERED: SODIUM PHOSPHATE IV SCH ×5 (18:00)
[2023-02-24 20:00] VITALS: BP 134/80; TEMP 97; O2SAT 97
[2023-02-24] MEDS: CETIRIZINE (ZyrTEC) 10 MG TAB PO SCH (20:22)
[2023-02-24] MEDS: RAMELTEON 8 MG TAB (ROZEREM) PO PRN (20:22)
[2023-02-25] VITALS (7 sets, daily range): BP systolic 115–135; BP diastolic 71–81; TEMP 96.7–99.2; O2SAT 92–97
[2023-02-25] MEDS: PIPERACILLIN/TAZOBACTAM SOD 3.375 GM in D5W MINI-BAG PLUS 50 ML IV SCH ×5 (00:47→23:48)
[2023-02-25] MEDS: IPRATROPIUM 0.5MG/ALBUTEROL 2.5MG INH SOL UD 3ML (DUONEB) NEB SCH ×4 (01:49→19:42)
[2023-02-25 05:46] LABS: HEMATOCRIT 40.4 % (42.0-52.0); HEMOGLOBIN 12.9 g/dl (13.5-17.5); MEAN CORPUSCULAR HEMOGLOBIN 28.1 pg (27.0-33.0); MEAN CORPUSCULAR HGB CONC 31.9 g/dl (32.0-36.5); PLATELET COUNT, AUTOMATED 232 10^3/uL (150-450); RED BLOOD COUNT 4.59 10^6/uL (4.30-6.10)
[2023-02-25 05:55] LABS: BLOOD UREA NITROGEN 16 MG/DL (9-23); CALCIUM LEVEL 8.4 MG/DL (8.5-10.1); CARBON DIOXIDE LEVEL 28 MMOL/L (20-31); CHLORIDE LEVEL 100 MMOL/L (98-107); CREATININE FOR GFR 0.79 MG/DL (0.70-1.30); GLOMERULAR FILTRATION RATE > 60.0 (>60); GLUCOSE, FASTING 147 MG/DL (60-100); POTASSIUM SERUM 4.2 MMOL/L (3.5-5.1); SODIUM LEVEL 134 MMOL/L (136-145)
[2023-02-25] MEDS: SODIUM CHLORIDE 0.9% INJ 10 ML SYR IV SCH ×2 (06:00→19:25)
[2023-02-25] MEDS: MORPHINE 1MG/ML IN 0.9% NACL 100ML IV BAG IV PRN (07:00)
[2023-02-25] MEDS: DIGOXIN INJ 0.5 MG/2 ML AMP IV SCH (09:49)
[2023-02-25] MEDS: PANTOPRAZOLE 40MG VIAL IV SCH (09:49)
[2023-02-25] MEDS: allopurinoL 100 MG TAB PO SCH (09:50)
[2023-02-25] MEDS: METOPROLOL TARTRATE 100MG TAB PO SCH ×2 (09:50→20:40)
[2023-02-25] MEDS: amLODIPine 5 MG TAB PO SCH (09:50)
[2023-02-25] MEDS: FLECAINIDE 50MG TABLET PO SCH ×2 (09:51→20:40)
[2023-02-25] MEDS ORDERED: FAT EMULSION IV 250 ML IV ONE (18:00)
[2023-02-25] MEDS ORDERED: MULTIVITAMIN -ADULT INJECTION 10 ML, ZINC/COPPER/MANGANESE/SELENIUM 1 ML in AMINO AC/EL... IV SCH (18:00)
[2023-02-25] MEDS: CETIRIZINE (ZyrTEC) 10 MG TAB PO SCH (20:40)
[2023-02-26] MEDS: IPRATROPIUM 0.5MG/ALBUTEROL 2.5MG INH SOL UD 3ML (DUONEB) NEB SCH ×4 (02:37→19:19)
[2023-02-26] MEDS: PERCOCET 5MG/325MG TAB PO PRN ×2 (03:01→22:27)
[2023-02-26 03:56] VITALS: BP 135/73; TEMP 99.2
[2023-02-26 05:00] LABS: HEMATOCRIT 42.1 % (42.0-52.0); HEMOGLOBIN 13.9 g/dl (13.5-17.5); MEAN CORPUSCULAR HEMOGLOBIN 27.7 pg (27.0-33.0); MEAN CORPUSCULAR VOLUME 83.9 fl (80.0-96.0); PLATELET COUNT, AUTOMATED 293 10^3/uL (150-450); RED BLOOD COUNT 5.02 10^6/uL (4.30-6.10); WHITE BLOOD COUNT 9.4 10^3/uL (4.0-10.0)
[2023-02-26 05:29] LABS: BLOOD UREA NITROGEN 12 MG/DL (9-23); CALCIUM LEVEL 8.7 MG/DL (8.5-10.1); CARBON DIOXIDE LEVEL 26 MMOL/L (20-31); CHLORIDE LEVEL 101 MMOL/L (98-107); CREATININE FOR GFR 0.75 MG/DL (0.70-1.30); GLOMERULAR FILTRATION RATE > 60.0 (>60); GLUCOSE, FASTING 161 MG/DL (60-100); POTASSIUM SERUM 4.4 MMOL/L (3.5-5.1); SODIUM LEVEL 134 MMOL/L (136-145)
[2023-02-26] MEDS: SODIUM CHLORIDE 0.9% INJ 10 ML SYR IV SCH ×2 (05:34→18:50)
[2023-02-26] MEDS: PIPERACILLIN/TAZOBACTAM SOD 3.375 GM in D5W MINI-BAG PLUS 50 ML IV SCH ×3 (05:48→18:49)
[2023-02-26 07:31] VITALS: BP 140/89; TEMP 97.8; O2SAT 96
[2023-02-26] MEDS: amLODIPine 5 MG TAB PO SCH (10:20)
[2023-02-26] MEDS: DIGOXIN INJ 0.5 MG/2 ML AMP IV SCH (10:20)
[2023-02-26] MEDS: FLECAINIDE 50MG TABLET PO SCH ×2 (10:21→20:58)
[2023-02-26] MEDS: allopurinoL 100 MG TAB PO SCH (10:21)
[2023-02-26] MEDS: METOPROLOL TARTRATE 100MG TAB PO SCH ×2 (10:21→20:58)
[2023-02-26] MEDS: PANTOPRAZOLE 40MG VIAL IV SCH (11:11)
[2023-02-26 12:00] VITALS: BP 117/79; TEMP 98.2; O2SAT 95
[2023-02-26 16:00] VITALS: BP 133/87; TEMP 97.5; O2SAT 97
[2023-02-26] MEDS ORDERED: AMINO AC/ELECTROLYTE/DEX/CALC 2,000 ML IV SCH (18:00)
[2023-02-26] MEDS ORDERED: FAT EMULSION IV 250 ML IV ONE (18:00)
[2023-02-26 20:00] VITALS: BP 128/79; TEMP 97.6; O2SAT 91
[2023-02-26] MEDS: CETIRIZINE (ZyrTEC) 10 MG TAB PO SCH (20:57)
[2023-02-26] MEDS: RAMELTEON 8 MG TAB (ROZEREM) PO PRN (20:58)
[2023-02-27] MEDS: PIPERACILLIN/TAZOBACTAM SOD 3.375 GM in D5W MINI-BAG PLUS 50 ML IV SCH ×5 (00:28→23:36)
[2023-02-27] MEDS: IPRATROPIUM 0.5MG/ALBUTEROL 2.5MG INH SOL UD 3ML (DUONEB) NEB SCH ×4 (01:09→20:14)
[2023-02-27 04:00] VITALS: BP 126/80; TEMP 97.6; O2SAT 91
[2023-02-27 05:30] LABS: HEMATOCRIT 43.2 % (42.0-52.0); HEMOGLOBIN 14.6 g/dl (13.5-17.5); MEAN CORPUSCULAR HEMOGLOBIN 28.1 pg (27.0-33.0); MEAN CORPUSCULAR HGB CONC 33.8 g/dl (32.0-36.5); MEAN CORPUSCULAR VOLUME 83.1 fl (80.0-96.0); PLATELET COUNT, AUTOMATED 340 10^3/uL (150-450); WHITE BLOOD COUNT 11.2 10^3/uL (4.0-10.0)
[2023-02-27 05:51] LABS: BLOOD UREA NITROGEN 12 MG/DL (9-23); CALCIUM LEVEL 8.5 MG/DL (8.5-10.1); CARBON DIOXIDE LEVEL 25 MMOL/L (20-31); CHLORIDE LEVEL 102 MMOL/L (98-107); CREATININE FOR GFR 0.71 MG/DL (0.70-1.30); GLOMERULAR FILTRATION RATE > 60.0 (>60); GLUCOSE, FASTING 183 MG/DL (60-100); POTASSIUM SERUM 4.6 MMOL/L (3.5-5.1); SODIUM LEVEL 135 MMOL/L (136-145)
[2023-02-27] MEDS: SODIUM CHLORIDE 0.9% INJ 10 ML SYR IV SCH ×2 (05:54→17:58)
[2023-02-27] MEDS ORDERED: MORPHINE 2 MG/ML 1ML VIAL IV ONE (07:00)
[2023-02-27] MEDS: amLODIPine 5 MG TAB PO SCH (09:00)
[2023-02-27] MEDS: allopurinoL 100 MG TAB PO SCH (10:09)
[2023-02-27] MEDS: METOPROLOL TARTRATE 100MG TAB PO SCH ×2 (10:09→20:18)
[2023-02-27] MEDS: FLECAINIDE 50MG TABLET PO SCH ×2 (10:10→20:18)
[2023-02-27] MEDS: PANTOPRAZOLE 40MG VIAL IV SCH (10:10)
[2023-02-27] MEDS: DIGOXIN INJ 0.5 MG/2 ML AMP IV SCH (10:58)
[2023-02-27 11:49] VITALS: BP 130/81; TEMP 96.8; O2SAT 95
[2023-02-27] MEDS ORDERED: LIDOCAINE 1% MDV 20ML VIAL As Ordered ONE (15:17)
[2023-02-27] MEDS ORDERED: FAT EMULSION IV 250 ML IV ONE (18:00)
[2023-02-27] MEDS ORDERED: MULTIVITAMIN -ADULT INJECTION 10 ML, ZINC/COPPER/MANGANESE/SELENIUM 1 ML in AMINO AC/EL... IV SCH (18:00)
[2023-02-27] MEDS: ONDANSETRON 4MG TAB PO PRN (18:58)
[2023-02-27] MEDS: traMADol 50 MG TAB PO PRN (18:59)
[2023-02-27 19:24] VITALS: BP 130/89; TEMP 97.5; O2SAT 98
[2023-02-27] MEDS: CETIRIZINE (ZyrTEC) 10 MG TAB PO SCH (20:18)
[2023-02-27 23:07] VITALS: BP 135/89; TEMP 97.6; O2SAT 98
[2023-02-28] VITALS (7 sets, daily range): BP systolic 122–136; BP diastolic 72–90; TEMP 97–97.9; O2SAT 95–100
[2023-02-28] MEDS: IPRATROPIUM 0.5MG/ALBUTEROL 2.5MG INH SOL UD 3ML (DUONEB) NEB SCH ×4 (02:00→19:28)
[2023-02-28] MEDS: PERCOCET 5MG/325MG TAB PO PRN ×2 (03:06→18:36)
[2023-02-28 05:19] LABS: HEMATOCRIT 43.4 % (42.0-52.0); HEMOGLOBIN 14.7 g/dl (13.5-17.5); MEAN CORPUSCULAR HGB CONC 33.9 g/dl (32.0-36.5); MEAN CORPUSCULAR VOLUME 82.7 fl (80.0-96.0); PLATELET COUNT, AUTOMATED 327 10^3/uL (150-450); RED BLOOD COUNT 5.25 10^6/uL (4.30-6.10); WHITE BLOOD COUNT 11.4 10^3/uL (4.0-10.0)
[2023-02-28 05:42] LABS: BLOOD UREA NITROGEN 13 MG/DL (9-23); CALCIUM LEVEL 8.4 MG/DL (8.5-10.1); CARBON DIOXIDE LEVEL 24 MMOL/L (20-31); CHLORIDE LEVEL 103 MMOL/L (98-107); CREATININE FOR GFR 0.74 MG/DL (0.70-1.30); GLOMERULAR FILTRATION RATE > 60.0 (>60); GLUCOSE, FASTING 145 MG/DL (60-100); POTASSIUM SERUM 4.6 MMOL/L (3.5-5.1); SODIUM LEVEL 135 MMOL/L (136-145)
[2023-02-28] MEDS: SODIUM CHLORIDE 0.9% INJ 10 ML SYR IV SCH ×2 (06:00→18:00)
[2023-02-28] MEDS: PIPERACILLIN/TAZOBACTAM SOD 3.375 GM in D5W MINI-BAG PLUS 50 ML IV SCH ×3 (06:11→18:21)
[2023-02-28] MEDS: amLODIPine 5 MG TAB PO SCH (09:00)
[2023-02-28] MEDS: DIGOXIN INJ 0.5 MG/2 ML AMP IV SCH (09:54)
[2023-02-28] MEDS: PANTOPRAZOLE 40MG VIAL IV SCH (09:54)
[2023-02-28] MEDS: allopurinoL 100 MG TAB PO SCH (09:55)
[2023-02-28] MEDS: FLECAINIDE 50MG TABLET PO SCH ×2 (09:55→20:28)
[2023-02-28] MEDS: METOPROLOL TARTRATE 100MG TAB PO SCH ×2 (09:56→20:29)
[2023-02-28] MEDS: ONDANSETRON 4MG TAB PO PRN ×2 (13:11→18:36)
[2023-02-28] MEDS: traMADol 50 MG TAB PO PRN (13:11)
[2023-02-28] MEDS ORDERED: FAT EMULSION IV 250 ML IV ONE (18:00)
[2023-02-28] MEDS ORDERED: AMINO AC/ELECTROLYTE/DEX/CALC 2,000 ML IV SCH (18:00)
[2023-02-28] MEDS: CETIRIZINE (ZyrTEC) 10 MG TAB PO SCH (20:28)
[2023-02-28] MEDS: busPIRone 10 MG TAB PO PRN (21:09)
[2023-02-28] MEDS: RAMELTEON 8 MG TAB (ROZEREM) PO PRN (21:09)
[2023-03-01] MEDS: PIPERACILLIN/TAZOBACTAM SOD 3.375 GM in D5W MINI-BAG PLUS 50 ML IV SCH ×5 (00:30→23:31)
[2023-03-01] MEDS: IPRATROPIUM 0.5MG/ALBUTEROL 2.5MG INH SOL UD 3ML (DUONEB) NEB SCH ×4 (02:00→19:32)
[2023-03-01] MEDS: SODIUM CHLORIDE 0.9% INJ 10 ML SYR IV PRN ×2 (03:40→08:13)
[2023-03-01 05:38] VITALS: BP 136/90; TEMP 97.5; O2SAT 96
[2023-03-01] MEDS: SODIUM CHLORIDE 0.9% INJ 10 ML SYR IV SCH ×2 (06:00→18:52)
[2023-03-01] MEDS: PERCOCET 5MG/325MG TAB PO PRN ×2 (07:28→15:20)
[2023-03-01] MEDS: PANTOPRAZOLE 40MG VIAL IV SCH (08:32)
[2023-03-01] MEDS: allopurinoL 100 MG TAB PO SCH (09:12)
[2023-03-01] MEDS: FLECAINIDE 50MG TABLET PO SCH ×2 (09:13→22:02)
[2023-03-01] MEDS: amLODIPine 5 MG TAB PO SCH (09:16)
[2023-03-01] MEDS: METOPROLOL TARTRATE 100MG TAB PO SCH ×2 (09:17→22:02)
[2023-03-01] MEDS: DIGOXIN 0.25 MG TAB PO SCH (09:37)
[2023-03-01 11:09] VITALS: BP 138/88; TEMP 97.9; O2SAT 95
[2023-03-01 14:13] VITALS: BP 125/74; TEMP 97.7; O2SAT 95
[2023-03-01 18:00] VITALS: BP 124/75; TEMP 97.7; O2SAT 97
[2023-03-01 19:29] VITALS: BP 127/78; TEMP 97.9; O2SAT 99
[2023-03-01] MEDS ORDERED: zolPIDEM TARTRATE 5 MG TAB PO PRN (21:45)
[2023-03-01] MEDS: CETIRIZINE (ZyrTEC) 10 MG TAB PO SCH (22:02)
[2023-03-01] MEDS: busPIRone 10 MG TAB PO PRN (22:03)
[2023-03-02] MEDS: SODIUM CHLORIDE 0.9% INJ 10 ML SYR IV PRN (01:23)
[2023-03-02] MEDS: IPRATROPIUM 0.5MG/ALBUTEROL 2.5MG INH SOL UD 3ML (DUONEB) NEB SCH ×4 (01:42→19:23)
[2023-03-02] MEDS: PIPERACILLIN/TAZOBACTAM SOD 3.375 GM in D5W MINI-BAG PLUS 50 ML IV SCH ×3 (05:59→17:52)
[2023-03-02] MEDS: SODIUM CHLORIDE 0.9% INJ 10 ML SYR IV SCH ×2 (06:00→19:18)
[2023-03-02 06:03] VITALS: BP 132/86; TEMP 97.5; O2SAT 96
[2023-03-02] MEDS: allopurinoL 100 MG TAB PO SCH (08:29)
[2023-03-02] MEDS: traMADol 50 MG TAB PO PRN ×2 (08:29→14:03)
[2023-03-02] MEDS: FLECAINIDE 50MG TABLET PO SCH ×2 (08:30→20:43)
[2023-03-02] MEDS: PANTOPRAZOLE 40MG VIAL IV SCH (08:33)
[2023-03-02] MEDS: METOPROLOL TARTRATE 100MG TAB PO SCH ×2 (08:33→20:43)
[2023-03-02] MEDS: amLODIPine 5 MG TAB PO SCH (08:33)
[2023-03-02] MEDS: DIGOXIN 0.25 MG TAB PO SCH (08:35)
[2023-03-02 10:45] VITALS: BP 129/84; TEMP 97.7; O2SAT 97
[2023-03-02] MEDS: PERCOCET 5MG/325MG TAB PO PRN (17:49)
[2023-03-02 20:15] VITALS: BP 129/85; TEMP 97.7; O2SAT 97
[2023-03-02] MEDS: CETIRIZINE (ZyrTEC) 10 MG TAB PO SCH (20:42)
[2023-03-02] MEDS: RAMELTEON 8 MG TAB (ROZEREM) PO PRN (22:44)
[2023-03-03] MEDS: PIPERACILLIN/TAZOBACTAM SOD 3.375 GM in D5W MINI-BAG PLUS 50 ML IV SCH ×2 (00:56→05:08)
[2023-03-03] MEDS: IPRATROPIUM 0.5MG/ALBUTEROL 2.5MG INH SOL UD 3ML (DUONEB) NEB SCH ×4 (02:00→20:27)
[2023-03-03 02:01] VITALS: BP 122/83; TEMP 97.2; O2SAT 100
[2023-03-03] MEDS: SODIUM CHLORIDE 0.9% INJ 10 ML SYR IV SCH (05:08)
[2023-03-03 05:38] VITALS: BP 127/79; TEMP 97.3; O2SAT 97
[2023-03-03] MEDS: amLODIPine 5 MG TAB PO SCH (09:00)
[2023-03-03] MEDS: AUGMENTIN 875 MG TAB PO SCH ×2 (10:21→21:24)
[2023-03-03] MEDS: allopurinoL 100 MG TAB PO SCH (10:21)
[2023-03-03] MEDS: METOPROLOL TARTRATE 100MG TAB PO SCH ×2 (10:22→21:24)
[2023-03-03] MEDS: DIGOXIN 0.25 MG TAB PO SCH (10:22)
[2023-03-03] MEDS: FLECAINIDE 50MG TABLET PO SCH ×2 (10:22→21:25)
[2023-03-03] MEDS: PANTOPRAZOLE 40MG VIAL IV SCH (10:23)
[2023-03-03] MEDS ORDERED: MORPHINE 2 MG/ML 1ML VIAL IV ONE (11:00)
[2023-03-03 14:00] VITALS: BP 124/78; TEMP 97.7; O2SAT 95
[2023-03-03] MEDS: traMADol 50 MG TAB PO PRN (17:02)
[2023-03-03] MEDS: ONDANSETRON 4MG TAB PO PRN (17:53)
[2023-03-03] MEDS: CETIRIZINE (ZyrTEC) 10 MG TAB PO SCH (21:25)
[2023-03-03] MEDS: PERCOCET 5MG/325MG TAB PO PRN (21:28)
[2023-03-03 22:00] VITALS: BP 131/77; TEMP 98.2; O2SAT 95
[2023-03-03] MEDS: RAMELTEON 8 MG TAB (ROZEREM) PO PRN (23:29)
[2023-03-04 02:00] VITALS: BP 125/75; TEMP 97.9; O2SAT 95
[2023-03-04] MEDS: IPRATROPIUM 0.5MG/ALBUTEROL 2.5MG INH SOL UD 3ML (DUONEB) NEB SCH ×2 (02:00→07:50)
[2023-03-04 06:00] VITALS: BP 124/76; TEMP 97.9; O2SAT 94
[2023-03-04] MEDS: allopurinoL 100 MG TAB PO SCH (08:18)
[2023-03-04] MEDS: FLECAINIDE 50MG TABLET PO SCH (08:18)
[2023-03-04] MEDS: METOPROLOL TARTRATE 100MG TAB PO SCH (08:19)
[2023-03-04] MEDS: AUGMENTIN 875 MG TAB PO SCH (08:19)
[2023-03-04 08:20] VITALS: BP 124/76
[2023-03-04] MEDS: amLODIPine 5 MG TAB PO SCH (08:20)
[2023-03-04] MEDS: DIGOXIN 0.25 MG TAB PO SCH (08:20)
[2023-03-04 09:52] VITALS: BP 123/79; TEMP 98.1; O2SAT 95
[2023-03-04] MEDS ORDERED: PERCOCET PO (13:46)
[2023-03-04] MEDS ORDERED: AMOX875T2 PO ×2 (13:46→15:00)
[2023-03-04 14:00] VITALS: BP 125/80; TEMP 98.1; O2SAT 94
[2023-03-04] MEDS: PERCOCET 5MG/325MG TAB PO PRN (14:06)
[2023-03-04] MEDS ORDERED: OXYC1TAB23 PO (15:00)
== END 2023-03-04 15:30 | disposition home health service (06) | DRG 907 ==
LOC: M ED 23:32 → M SDC 02-13 03:59 → M ED INP 02-13 04:47 → M PCU 02-13 09:55 → M MSPAV 02-17 04:41 → M PCU 02-19 19:02 → M MSPAV 02-21 16:35 → M PCU 02-22 14:10 → M MS5PR 02-28 17:27
PROVIDERS: ADMIT Surgery; ATTEND Surgery
PROC: 0DBM0ZZ Excision of Descending Colon, Open Approach (ICD-10-PCS; principal; 2023-02-13 03:49)
PROC: 0W9G30Z Drainage of Peritoneal Cavity with Drainage Device, Percutaneous Approach (ICD-10-PCS; 2023-02-18)
PROC: 02HV33Z Insertion of Infusion Device into Superior Vena Cava, Percutaneous Approach (ICD-10-PCS; 2023-02-19)
PROC: 0DBU0ZZ Excision of Omentum, Open Approach (ICD-10-PCS; 2023-02-22)
PROC: 0D1M0J4 Bypass Descending Colon to Cutaneous with Synthetic Substitute, Open Approach (ICD-10-PCS; 2023-02-22)
PROC: 3E0436Z Introduction of Nutritional Substance into Central Vein, Percutaneous Approach (ICD-10-PCS; 2023-02-25)
DX: K91.71 Accidental puncture and laceration of a digestive system organ or structure during a digestive system procedure (principal); A41.9 Sepsis, unspecified organism; Z68.41 Body mass index [BMI] 40.0-44.9, adult; K91.89 Other postprocedural complications and disorders of digestive system; N17.9 Acute kidney failure, unspecified; K56.7 Ileus, unspecified; K68.11 Postprocedural retroperitoneal abscess; E87.1 Hypo-osmolality and hyponatremia; E66.01 Morbid (severe) obesity due to excess calories; G47.33 Obstructive sleep apnea (adult) (pediatric); I48.0 Paroxysmal atrial fibrillation; B96.20 Unspecified Escherichia coli [E. coli] as the cause of diseases classified elsewhere; E87.5 Hyperkalemia; E83.51 Hypocalcemia; I11.9 Hypertensive heart disease without heart failure; K66.0 Peritoneal adhesions (postprocedural) (postinfection); D64.9 Anemia, unspecified; J30.2 Other seasonal allergic rhinitis; K21.9 Gastro-esophageal reflux disease without esophagitis; M54.9 Dorsalgia, unspecified; M10.9 Gout, unspecified; Y83.8 Other surgical procedures as the cause of abnormal reaction of the patient, or of later complication, without mention of misadventure at the time of the procedure; F41.9 Anxiety disorder, unspecified; Z79.82 Long term (current) use of aspirin; Z79.899 Other long term (current) drug therapy; Z87.891 Personal history of nicotine dependence

== ENCOUNTER → 2023-06-26 | Outpatient (CLI) | payer OTHER ==
[~2023-06-26] MED LIST: ALLO100T PO; ALTA1CAP3 PO; ALTA1CAP4 PO; AMBI10TA PO; AMBI12.52 PO; AMOX875T2 PO; ASPI-615 PO; BUSP10TA PO; CETI-25 PO; CETI10TA4 PO; CLIN1GEL22 TOP; ERGO500029 PO; FLEC50HA PO; GASTROGRAFIN SOLUTION 30ML As Ordered ONE; ISOVUE-370 76% 100ML VIAL As Ordered ONE; KETO2SHA8 TOP; MELA5TAB58 PO; METH-1165 PO; METO100T5 PO; OMEP40CA5 PO; OXYC1TAB23 PO; PERCOCET PO; PRIL20TA2 PO; RAMI1CAP26 PO; ROSU40TA4 PO
== END ==
LOC: M RAD 07:26
PROVIDERS: ATTEND Surgery
DX: Z43.3 Encounter for attention to colostomy (principal); R10.33 Periumbilical pain; E66.9 Obesity, unspecified
CPT/HCPCS: 74177; Q9963; Q9967

== ENCOUNTER 2023-12-22 22:31 | Emergency (ER) | payer OTHER ==
[~2023-12-22] VITALS: Ht 175.3 cm; Wt 129.3 kg
[~2023-12-22 22:31] MED LIST changes: +FLEC1TAB PO; -GASTROGRAFIN SOLUTION 30ML As Ordered ONE; +IBUP-1022 PO; -ISOVUE-370 76% 100ML VIAL As Ordered ONE; +LEVO1TAB40 PO; +METR-265 PO; +ONDA-282 PO; +RAMI10CA64 PO; -RAMI1CAP26 PO; -ROSU40TA4 PO; +ROSU40TA81 PO; +TRAM50TA2 PO
[2023-12-23] MEDS ORDERED: ISOVUE-370 76% 100ML VIAL As Ordered ONE (04:50)
[2023-12-23] MEDS: ACETAMINOPHEN 325 MG TAB PO ONE (04:52)
[2023-12-23] MEDS: FAMOTIDINE 20MG/2ML VIAL IVP ONE (04:52)
[2023-12-23 04:57] LABS: BASO % 0.5 % (0.0-1.0); EOS # 0.2 10^3/uL (0.0-0.5); EOS % 3.3 % (0.0-3.0); HEMATOCRIT 42.6 % (42.0-52.0); HEMOGLOBIN 14.4 g/dl (13.5-17.5); LYMPH # 1.7 10^3/uL (1.5-5.0); LYMPH % 22.6 % (24.0-44.0); MEAN CORPUSCULAR HEMOGLOBIN 27.9 pg (27.0-33.0); MEAN CORPUSCULAR HGB CONC 33.8 g/dl (32.0-36.5); MEAN CORPUSCULAR VOLUME 82.6 fl (80.0-96.0); MONO # 0.7 10^3/uL (0.0-0.8); MONO % 9.7 % (2.0-8.0); NEUTROPHILS # 4.7 10^3/uL (1.5-8.5); NEUTROPHILS % 63.4 % (36.0-66.0); PLATELET COUNT, AUTOMATED 134 10^3/uL (150-450); RED BLOOD COUNT 5.16 10^6/uL (4.30-6.10); WHITE BLOOD COUNT 7.3 10^3/uL (4.0-10.0)
[2023-12-23 05:23] LABS: LIPASE 22 U/L (12-53)
[2023-12-23 05:25] LABS: ALBUMIN 3.8 G/DL (3.2-5.2); ALKALINE PHOSPHATASE 84 U/L (46-116); ALT/SGPT 54 U/L (7.0-40); AST/SGOT 22 U/L (<34); BILIRUBIN,DIRECT 0.1 MG/DL (<0.4); BILIRUBIN,TOTAL 0.4 MG/DL (0.3-1.2); BLOOD UREA NITROGEN 11 MG/DL (9-23); CARBON DIOXIDE LEVEL 27 MMOL/L (20-31); CHLORIDE LEVEL 109 MMOL/L (98-107); CK-MB VALUE MASS < 1.0 NG/ML (<3.6); CREATININE FOR GFR 0.83 MG/DL (0.70-1.30); GLOMERULAR FILTRATION RATE > 60.0 (>60); GLUCOSE, FASTING 113 MG/DL (60-100); SODIUM LEVEL 139 MMOL/L (136-145); TOTAL PROTEIN 6.7 G/DL (5.7-8.2)
[2023-12-23 05:28] LABS: CPK CREATINE PHOSPHOKINASE 111 U/L (46-171)
[2023-12-23 07:00] VITALS: BP 127/69; O2SAT 98
[2023-12-23 07:13] VITALS: TEMP 97.4
== END 2023-12-23 07:15 | disposition home or self-care (01) ==
LOC: M ED 22:31
DX: R10.9 Unspecified abdominal pain (principal); R07.89 Other chest pain; R00.1 Bradycardia, unspecified; I48.91 Unspecified atrial fibrillation; F41.9 Anxiety disorder, unspecified; F43.10 Post-traumatic stress disorder, unspecified; Z91.09 Other allergy status, other than to drugs and biological substances; Z88.8 Allergy status to other drugs, medicaments and biological substances; Z79.1 Long term (current) use of non-steroidal anti-inflammatories (NSAID); Z79.899 Other long term (current) drug therapy
CPT/HCPCS: 71046; 74177; 80048; 80076; 81001; 82550; 82553; 83605; 83690; 84484; 85025; 93005; 93041; 96374; 99284; Q9967

== ENCOUNTER → 2024-05-11 | Outpatient (REF) | payer OTHER | LOC: M SMT 14:52 | PROVIDERS: ATTEND Urology | DX: Z30.2 Encounter for sterilization (principal) ==

== ENCOUNTER → 2024-06-13 | Outpatient (CLI) | payer OTHER ==
[~2024-06-13] MED LIST changes: +ISOVUE-370 76% 100ML VIAL ONE
== END ==
LOC: M PLAIMG 10:23
PROVIDERS: ATTEND Surgery
DX: K43.2 Incisional hernia without obstruction or gangrene (principal)
CPT/HCPCS: 74177; Q9967

== ENCOUNTER → 2024-07-05 | Outpatient (REF) | payer OTHER ==
[~2024-07-05] MED LIST changes: -ISOVUE-370 76% 100ML VIAL ONE
== END ==
LOC: M SMT 11:13
PROVIDERS: ATTEND Urology
DX: Z30.2 Encounter for sterilization (principal); Z53.8 Procedure and treatment not carried out for other reasons

== ENCOUNTER → 2024-07-18 | Outpatient (REF) | payer OTHER ==
[2024-07-18 09:22] LABS: SEMEN APPEARANCE OPAQUE (OPAQUE); SEMEN VISCOSITY LIQUID (LIQUID); SEMEN VOLUME 2.4 ml (2.0-5.0)
[2024-07-18 09:23] LABS: WBC CONCENTRATION <=1 M/ml (<=1 M/ml)
== END ==
LOC: M SMT 09:15
PROVIDERS: ATTEND Urology
DX: Z30.2 Encounter for sterilization (principal)

== ENCOUNTER 2025-02-09 06:06 | Day surgery (SDC) | payer OTHER ==
[~2025-02-09] VITALS: Ht 175.3 cm; Wt 126.8 kg
[~2025-02-09 06:06] MED LIST changes: -AMBI10TA PO; -AMBI12.52 PO; -IBUP-1022 PO; +IBUP600T42 PO; +KETO120S5 TOP; -KETO2SHA8 TOP; +ZOLP-533 PO; +ZOLP12.561 PO; +[UNRECOGNIZED DRUG - CODE] SQ
[2025-02-09] MEDS ORDERED: LIDOCAINE 2% 100 MG/5 ML SDV (FOR ANES.) As Ordered ONE (07:09)
[2025-02-09] MEDS ORDERED: ONDANSETRON 4MG/2ML VIAL As Ordered ONE (07:09)
[2025-02-09] MEDS ORDERED: MIDAZOLAM INJ 2 MG/2 ML VIAL As Ordered ONE (07:09)
[2025-02-09] MEDS: BOTOX THERAPEUTIC 100 UNIT VIAL As Ordered ONE (08:04)
[2025-02-09 08:18] VITALS: BP 109/68; TEMP 97; O2SAT 96
[2025-02-28] MEDS ORDERED: RAMI5CAP60 PO (09:54)
[2025-02-28] MEDS ORDERED: PANT40TA29 PO (09:54)
[2025-02-28] MEDS ORDERED: GABA-1171 PO (09:54)
== END 2025-02-09 08:36 | disposition home or self-care (01) ==
LOC: M SDC 06:06
PROVIDERS: ATTEND Surgery
DX: M62.89 Other specified disorders of muscle (principal); K43.2 Incisional hernia without obstruction or gangrene; I48.91 Unspecified atrial fibrillation; G47.30 Sleep apnea, unspecified; Z88.8 Allergy status to other drugs, medicaments and biological substances; J30.2 Other seasonal allergic rhinitis; Z91.048 Other nonmedicinal substance allergy status; Z79.899 Other long term (current) drug therapy; Z87.891 Personal history of nicotine dependence; M62.48 Contracture of muscle, other site
CPT/HCPCS: 64646; J0585; J0665; J2250; J2405; J3010

== ENCOUNTER 2025-03-15 06:01 | Inpatient (IN) | payer OTHER ==
[~2025-03-15] VITALS: Ht 175.3 cm; Wt 129.0 kg
[~2025-03-15 06:01] MED LIST changes: +GABA-1171 PO; +PANT40TA29 PO; +RAMI5CAP60 PO
[2025-03-15] MEDS: LR 1,000 ML IV SCH ×2 (06:15→18:49)
[2025-03-15] MEDS: CelecoXIB 400 MG CAP PO ONE (07:01)
[2025-03-15] MEDS ORDERED: KETOROLAC 30 MG/ML 1 ML VIAL As Ordered ONE (07:13)
[2025-03-15] MEDS ORDERED: dexAMETHasone 4 MG/ML 1 ML VIAL As Ordered ONE (07:13)
[2025-03-15] MEDS ORDERED: ONDANSETRON 4MG/2ML VIAL As Ordered ONE (07:13)
[2025-03-15] MEDS ORDERED: ROCURONIUM BROMIDE 50MG/5ML VIAL As Ordered ONE (07:14)
[2025-03-15] MEDS ORDERED: SUGAMMADEX SODIUM 200 MG/2 ML VIAL As Ordered ONE (07:14)
[2025-03-15] MEDS ORDERED: ACETAMINOPHEN 1000MG/100ML IV BAG As Ordered ONE (07:14)
[2025-03-15] MEDS ORDERED: LIDOCAINE 2% 100 MG/5 ML SDV (FOR ANES.) As Ordered ONE (07:14)
[2025-03-15] MEDS ORDERED: MIDAZOLAM INJ 2 MG/2 ML VIAL As Ordered ONE (07:21)
[2025-03-15] MEDS ORDERED: KETAMINE HCL 200 MG/20 ML VIAL As Ordered ONE (07:22)
[2025-03-15] MEDS: HEPARIN SOD 5000 UNITS/ML 1 ML VIAL/SYRINGE SQ ONE (07:55)
[2025-03-15] MEDS: ceFAZolin SOD 3 GM in DEXTROSE 5% (D5W) MINI-BAG PLU 1... IV ONE (08:00)
[2025-03-15] MEDS ORDERED: PHENYLephrine 500MCG 5ML (100MCG/ML) SYRINGE As Ordered ONE (08:28)
[2025-03-15] MEDS ORDERED: PHENYLEPHRINE 10MG/ML 1ML VIAL As Ordered ONE (09:01)
[2025-03-15] MEDS: LIDOCAINE 1% SDV 30 ML VIAL As Ordered ONE (14:54)
[2025-03-15] MEDS ORDERED: HYDROmorphone HCL 2 MG/ML 1 ML VIAL As Ordered ONE (16:12)
[2025-03-15] MEDS ORDERED: CALCIUM CHLORIDE 10% 1 GM/10 ML SYR As Ordered ONE (16:26)
[2025-03-15] MEDS ORDERED: ONDANSETRON 4MG/2ML VIAL IV PRN (16:30)
[2025-03-15] MEDS ORDERED: MORPHINE 2 MG/ML 1 ML VIAL IV PRN (16:30)
[2025-03-15] MEDS ORDERED: MORPHINE 4 MG/ML 1 ML VIAL IV PRN (16:40)
[2025-03-15] MEDS ORDERED: CETIRIZINE 10 MG TAB PO PRN (16:40)
[2025-03-15] MEDS: HYDROMORPHONE HCL 0.5 MG/0.5 ML SYRINGE IV PRN (16:51)
[2025-03-15 18:15] LABS: BASO # 0.0 10^3/uL (0.0-0.2); BASO % 0.2 % (0.0-1.0); EOS # 0.0 10^3/uL (0.0-0.5); EOS % 0.0 % (0.0-3.0); LYMPH # 0.8 10^3/uL (1.5-5.0); LYMPH % 3.6 % (24.0-44.0); MONO # 1.2 10^3/uL (0.0-0.8); MONO % 5.8 % (2.0-8.0); NEUTROPHILS # 19.3 10^3/uL (1.5-8.5); NEUTROPHILS % 89.7 % (36.0-66.0); PLATELET COUNT, AUTOMATED 145 10^3/uL (150-450)
[2025-03-15 18:36] VITALS: BP 113/65; TEMP 96.9; O2SAT 94
[2025-03-15] MEDS: ONDANSETRON 4MG/2ML VIAL IV PRN (18:49)
[2025-03-15 18:50] LABS: CALCIUM LEVEL 8.4 MG/DL (8.5-10.1); CARBON DIOXIDE LEVEL 21 MMOL/L (20-31); CHLORIDE LEVEL 108 MMOL/L (98-107); CREATININE FOR GFR 0.88 MG/DL (0.70-1.30); GLOMERULAR FILTRATION RATE > 90.0 (>60); POTASSIUM SERUM 4.7 MMOL/L (3.5-5.1); SODIUM LEVEL 141 MMOL/L (136-145)
[2025-03-15] MEDS: ROSUVASTATIN 10 MG TAB PO SCH (18:50)
[2025-03-15] MEDS: KETOROLAC 30 MG/ML 1 ML VIAL IV SCH (18:50)
[2025-03-15 19:22] VITALS: BP 105/58; TEMP 98.5; O2SAT 94
[2025-03-15] MEDS: SENNOSIDES/DOCUSATE SODIUM 8.6 MG/50MG TAB PO SCH (20:35)
[2025-03-15] MEDS: METOPROLOL TARTRATE 100 MG TAB PO SCH (20:36)
[2025-03-15] MEDS: FLECAINIDE 50 MG TABLET PO SCH (20:54)
[2025-03-15 21:06] VITALS: BP 120/67; TEMP 98; O2SAT 97
[2025-03-16] VITALS (7 sets, daily range): BP systolic 98–135; BP diastolic 54–80; TEMP 97.7–100.3; O2SAT 92–96
[2025-03-16 08:55] LABS: BASO # 0.0 10^3/uL (0.0-0.2); BASO % 0.4 % (0.0-1.0); EOS # 0.0 10^3/uL (0.0-0.5); EOS % 0.3 % (0.0-3.0); LYMPH # 1.8 10^3/uL (1.5-5.0); LYMPH % 16.6 % (24.0-44.0); MONO # 1.0 10^3/uL (0.0-0.8); MONO % 8.7 % (2.0-8.0); NEUTROPHILS # 8.0 10^3/uL (1.5-8.5); NEUTROPHILS % 73.4 % (36.0-66.0); PLATELET COUNT, AUTOMATED 110 10^3/uL (150-450)
[2025-03-16] MEDS: ASPIRIN 81 MG ENTERIC TABLET PO SCH (09:05)
[2025-03-16] MEDS: ENOXAPARIN 40 MG/0.4 ML SYRINGE (J1650 PER 10MG) SC SCH (09:08)
[2025-03-16] MEDS: PANTOPRAZOLE 40MG VIAL IV SCH (09:08)
[2025-03-16 09:17] LABS: CALCIUM LEVEL 8.0 MG/DL (8.5-10.1); CARBON DIOXIDE LEVEL 29 MMOL/L (20-31); CHLORIDE LEVEL 106 MMOL/L (98-107); CREATININE FOR GFR 1.00 MG/DL (0.70-1.30); GLOMERULAR FILTRATION RATE > 90.0 (>60); POTASSIUM SERUM 4.5 MMOL/L (3.5-5.1); SODIUM LEVEL 140 MMOL/L (136-145)
[2025-03-16] MEDS: METOPROLOL TART 50 MG TAB PO SCH (20:38)
[2025-03-17 06:14] VITALS: BP 134/75; TEMP 97.7; O2SAT 94
[2025-03-17 07:13] LABS: BASO # 0.0 10^3/uL (0.0-0.2); BASO % 0.4 % (0.0-1.0); EOS # 0.0 10^3/uL (0.0-0.5); EOS % 0.4 % (0.0-3.0); LYMPH # 1.0 10^3/uL (1.5-5.0); LYMPH % 9.2 % (24.0-44.0); MONO # 1.0 10^3/uL (0.0-0.8); MONO % 8.8 % (2.0-8.0); NEUTROPHILS # 8.7 10^3/uL (1.5-8.5); NEUTROPHILS % 80.4 % (36.0-66.0); PLATELET COUNT, AUTOMATED 109 10^3/uL (150-450)
[2025-03-17 07:39] LABS: CALCIUM LEVEL 7.9 MG/DL (8.5-10.1); CARBON DIOXIDE LEVEL 26 MMOL/L (20-31); CHLORIDE LEVEL 109 MMOL/L (98-107); CREATININE FOR GFR 0.89 MG/DL (0.70-1.30); GLOMERULAR FILTRATION RATE > 90.0 (>60); POTASSIUM SERUM 4.0 MMOL/L (3.5-5.1); SODIUM LEVEL 144 MMOL/L (136-145)
[2025-03-17] MEDS: PANTOPRAZOLE 40MG TAB PO SCH (08:44)
[2025-03-17] MEDS: MIRALAX *UNIT DOSE* 17 GM PACKET PO SCH (09:00)
[2025-03-17 14:26] VITALS: BP 108/60; TEMP 99.2; O2SAT 94
[2025-03-17 19:42] VITALS: BP 117/67; TEMP 99.3; O2SAT 93
[2025-03-18 04:32] VITALS: BP 106/58; TEMP 99.1; O2SAT 94
[2025-03-18 08:56] LABS: BASO # 0.0 10^3/uL (0.0-0.2); BASO % 0.5 % (0.0-1.0); EOS # 0.2 10^3/uL (0.0-0.5); EOS % 1.9 % (0.0-3.0); LYMPH # 1.7 10^3/uL (1.5-5.0); LYMPH % 18.6 % (24.0-44.0); MONO # 0.9 10^3/uL (0.0-0.8); MONO % 9.7 % (2.0-8.0); NEUTROPHILS # 6.1 10^3/uL (1.5-8.5); NEUTROPHILS % 68.5 % (36.0-66.0); PLATELET COUNT, AUTOMATED 119 10^3/uL (150-450)
[2025-03-18] MEDS: CALCIUM CARBONATE 500 MG CHEW U/D PO SCH (12:55)
[2025-03-18 14:00] VITALS: BP 120/68; TEMP 98.6; O2SAT 95
[2025-03-18 19:38] VITALS: BP 130/66; TEMP 100.3; O2SAT 96
[2025-03-19 04:14] VITALS: BP 111/63; TEMP 98.4; O2SAT 94
[2025-03-19 06:41] LABS: BASO # 0.0 10^3/uL (0.0-0.2); BASO % 0.4 % (0.0-1.0); EOS # 0.2 10^3/uL (0.0-0.5); EOS % 2.4 % (0.0-3.0); LYMPH # 1.2 10^3/uL (1.5-5.0); LYMPH % 14.4 % (24.0-44.0); MONO # 0.8 10^3/uL (0.0-0.8); MONO % 9.6 % (2.0-8.0); NEUTROPHILS # 6.1 10^3/uL (1.5-8.5); NEUTROPHILS % 72.0 % (36.0-66.0); PLATELET COUNT, AUTOMATED 139 10^3/uL (150-450)
[2025-03-19 14:00] VITALS: BP 117/68; TEMP 99.3; O2SAT 96
[2025-03-19 19:38] VITALS: BP 136/61; TEMP 99.1; O2SAT 97
[2025-03-19] MEDS: ACETAMINOPHEN 325 MG TAB PO PRN (22:20)
[2025-03-20 04:19] VITALS: BP 102/57; TEMP 98; O2SAT 96
[2025-03-20 06:40] LABS: BASO # 0.0 10^3/uL (0.0-0.2); BASO % 0.5 % (0.0-1.0); EOS # 0.2 10^3/uL (0.0-0.5); EOS % 2.5 % (0.0-3.0); LYMPH # 1.3 10^3/uL (1.5-5.0); LYMPH % 14.5 % (24.0-44.0); MONO # 0.9 10^3/uL (0.0-0.8); MONO % 10.6 % (2.0-8.0); NEUTROPHILS # 6.1 10^3/uL (1.5-8.5); NEUTROPHILS % 70.4 % (36.0-66.0); PLATELET COUNT, AUTOMATED 180 10^3/uL (150-450)
[2025-03-20 08:36] VITALS: BP 127/77
[2025-03-20] MEDS ORDERED: HYDR-3715 PO (11:50)
== END 2025-03-20 13:00 | disposition home or self-care (01) | DRG 354 ==
LOC: M OR 06:01 → M PCU 18:31 → M MS5PR 20:11
PROVIDERS: ADMIT Surgery; ATTEND Surgery
PROC: 8E0W4CZ Robotic Assisted Procedure of Trunk Region, Percutaneous Endoscopic Approach (ICD-10-PCS; 2025-03-15)
PROC: 0WUF4JZ Supplement Abdominal Wall with Synthetic Substitute, Percutaneous Endoscopic Approach (ICD-10-PCS; principal; 2025-03-15 07:30)
DX: K43.2 Incisional hernia without obstruction or gangrene (principal); Z68.41 Body mass index [BMI] 40.0-44.9, adult; E66.01 Morbid (severe) obesity due to excess calories; I10 Essential (primary) hypertension; K21.9 Gastro-esophageal reflux disease without esophagitis; K76.0 Fatty (change of) liver, not elsewhere classified; R73.03 Prediabetes; B35.0 Tinea barbae and tinea capitis; M10.9 Gout, unspecified; G47.00 Insomnia, unspecified; R42 Dizziness and giddiness; F41.9 Anxiety disorder, unspecified; I48.91 Unspecified atrial fibrillation; T44.7X5A Adverse effect of beta-adrenoreceptor antagonists, initial encounter; I95.2 Hypotension due to drugs; Z79.82 Long term (current) use of aspirin; Z79.899 Other long term (current) drug therapy; Z88.8 Allergy status to other drugs, medicaments and biological substances; Z87.891 Personal history of nicotine dependence